=== PATIENT | male | born 1945 | race Caucasian/White ===

== ENCOUNTER 2019-11-11 10:58 | Outpatient (CLI) | payer MEDICARE, OTHER ==
--- NOTE | 2019-11-11 12:16 | RAD ---
CHEST TWO VIEWS: 11/11/2019 PROVIDED CLINICAL HISTORY: Preop. FINDINGS: The cardiac silhouette is at the upper limits of normal in size. No focal consolidation, pleural flui d or pneumothorax apparent. Degenerative changes are seen involving the spine. IMPRESSION: Borderline heart size without evidence for an acute cardiopulmonary process. POS: OFF
[2019-11-11 13:06] LABS: #Eosinphils 0.3 thou/uL (0.0-0.7); #Lymphocytes 1.9 thou/uL (1.20-3.40); #Monocytes 0.7 thou/uL (0.11-0.59); #Neutrophils 4.5 thou/uL (1.40-6.50); %Basophils 0.5 % (0.0-1.0); %Eosinophils 3.9 % (0.0-10.0); %Lymphocytes 25.3 % (21.0-51.0); %Monocytes 9.1 % (0.0-10.0); %Neutrophils 61.2 % (42.0-75.0); Hemoglobin 15.4 g/dL (14.0-18.0); Mean Corpuscular Hemoglobin 32.8 pg (27.0-31.0); Mean Corpuscular Volume 93.6 fL (78.0-98.0); Mean Platelet Volume 9.3 fL (7.4-10.4); Platelet Count 197 thou/uL (130-400); RBC Distribution Width 12.1 % (11.5-14.5); Red Blood Cell (RBC) Count 4.71 mill/uL (4.70-6.10); White Blood Cell (WBC) Count 7.3 thou/uL (4.8-10.8)
[2019-11-11 13:33] LABS: ALT (SGPT) 39 U/L (8-55); AST (SGOT) 30 U/L (5-34); Albumin 4.4 g/dL (3.4-4.8); Alkaline Phosphatase 68 U/L (40-110); Anion Gap 14 mmol/L (10-20); BUN (Urea Nitrogen) 11 mg/dL (8.4-25.7); Bilirubin, Total 0.5 mg/dL (0.2-1.2); Calc. Creatinine Clearance 0 mL/min (70-130); Calcium 9.6 mg/dL (7.8-10.44); Carbon Dioxide 26 mmol/L (23-31); Chloride 102 mmol/L (98-107); Estimated GFR-MDRD Greater than 90; Globulin 2.7 g/dL (2.4-3.5); Glucose 193 mg/dL (83-110); Potassium 4.6 mmol/L (3.5-5.1); Protein, Total 7.1 g/dL (5.8-8.1); Sodium 137 mmol/L (136-145)
== END 2019-11-11 10:59 | disposition home or self-care (01) ==
LOC: LABBT 10:58
PROVIDERS: ATTEND Internal Medicine Cardiovascular Disease
DX: Z01.818 Encounter for other preprocedural examination (principal); R93.5 Abnormal findings on diagnostic imaging of other abdominal regions, including retroperitoneum
CPT/HCPCS: 71046; 80053; 85025

== ENCOUNTER 2019-11-22 05:53 | Inpatient (IN) | payer MEDICARE, OTHER ==
[2019-11-22] MEDS ORDERED: Heparin (Artline) 1,000 ML ONE (06:33)
[2019-11-22] MEDS ORDERED: Heparin 10,000 UNITS/1 ML VIAL ONE (06:33)
[2019-11-22] MEDS ORDERED: Midazolam HCl 2 mg/2 ml Vial ONE (07:02)
[2019-11-22] MEDS ORDERED: Bivalirudin 250 MG VIAL ONE (07:39)
[2019-11-22] MEDS ORDERED: Heparin (Artline) 500 ML ONE ×2 (07:40→07:48)
[2019-11-22] MEDS ORDERED: Protamine Sulfate 50 MG/5 ML VIAL ONE (08:02)
[2019-11-22] MEDS ORDERED: Nitroglycerin 0.4 MG TAB (25 Tab Bottle) SL PRN (08:20)
[2019-11-22] MEDS ORDERED: Sodium Chloride 0.9% 200 ML IV PRN (08:20)
[2019-11-22] MEDS ORDERED: Sodium Chloride 0.9% 1,000 ML IV SCH (08:30)
[2019-11-22] MEDS ORDERED: Acetaminophen 500 MG TAB ONE (08:52)
[2019-11-22] MEDS ORDERED: Acetaminophen 500 MG TAB PO SCH (09:00)
[2019-11-22] MEDS ORDERED: Iopamidol 370 76% 50 ML VIAL FS ONE (09:21)
[2019-11-22] MEDS ORDERED: Iopamidol 370 76% 100 ML VIAL ONE (09:21)
--- NOTE | 2019-11-22 12:12 | CON ---
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 He was also noted to have a complete right coronary occlusion at that time and this could not be opened. He has been followed along and due to recent abnormal PET study associated with some dyspnea, but no chest discomfort. Catheterization was repeated showing about a 70% LAD stenosis and then 60% stenosis of the circumflex stent just in the region of a bifurcating OM system. Right coronary artery was occluded distally and filled from left-sided collaterals, although it did not show any vessels that were large enough to consider for grafting. PAST MEDICAL HISTORY: Includes diabetes mellitus followed by Dr. Lori Brown with an A1c of about 8. He also has obesity and uses CPAP machine. He has hypertension, controlled. Diabetes mellitus as noted. He has a history of elevated liver function tests. SOCIAL HISTORY: He has not smoked since 1973. He is . 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 PAST SURGICAL HISTORY: Includes laparoscopic cholecystectomy as well as two back surgeries done in 2016 and 2017 in the [place] area. ALLERGIES: OPIATES AND TYLENOL 3, WHICH MAKES HIM GOOFY. MEDICATIONS: Include; 1. Ramipril 10 mg daily. 2. Aspirin 325 a day. 3. Fish oil 1000 mg twice a day. 4. Metformin 1000 mg b.i.d. 5. Glipizide 10 mg b.i.d. 6. Prilosec 20 mg daily. 7. Metoprolol ER 200 mg daily. 8. Simvastatin 40 mg daily. 9. Vitamins supplements. 10. He is also on diltiazem ER 240 a day. PHYSICAL EXAMINATION: GENERAL: Alert, cooperative gentleman, appearing younger than his stated age with a weight of 251 pounds and height of 5 feet 11 inches. NECK: No carotid bruits. LUNGS: Clear to auscultation. CARDIAC: Regular rate and rhythm. No murmurs. ABDOMEN: Obese, soft, and nontender. EXTREMITIES: He has palpable dorsalis pedis pulses. He has a sandbag on the right groin with hematoma and this seems to extend along his medial thigh toward his knee. He is somewhat tender to palpation in this area. Consider grafting to the LAD, possibly one or both of the obtuse marginals and the distal PDA system if a vessel is large enough to graft there. Due to his rather sizable hematoma in the groin at this time, I suggested that we wait for surgery for another week or so to ensure this is not going to be a problem in the groin. He has had no symptoms to suggest angina. He has a chronically occluded right and well collateralized. Job ID: [id number]
[2019-11-22] MEDS: glipiZIDE 10 MG TAB PO SCH (17:27)
[2019-11-22 17:38] VITALS: BMI 35.3
[2019-11-22] MEDS ORDERED: Atorvastatin Calcium 20 MG TAB PO SCH (21:00)
[2019-11-22] MEDS ORDERED: Acetaminophen 325 MG TAB PO PRN (22:55)
[2019-11-23 05:38] LABS: #Basophils 0.1 thou/uL (0.0-0.2); #Eosinphils 0.1 thou/uL (0.0-0.7); #Monocytes 1.3 thou/uL (0.11-0.59); #Neutrophils 8.6 thou/uL (1.40-6.50); %Basophils 0.7 % (0.0-1.0); %Eosinophils 0.8 % (0.0-10.0); %Lymphocytes 16.8 % (21.0-51.0); %Monocytes 10.5 % (0.0-10.0); %Neutrophils 71.2 % (42.0-75.0); Hemoglobin 13.4 g/dL (14.0-18.0); Mean Corpuscular HGB CONC 31.5 g/dL (32.0-36.0); Mean Corpuscular Hemoglobin 29.9 pg (27.0-31.0); Mean Platelet Volume 9.6 fL (7.4-10.4); Platelet Count 208 thou/uL (130-400); RBC Distribution Width 12.2 % (11.5-14.5); Red Blood Cell (RBC) Count 4.48 mill/uL (4.70-6.10); White Blood Cell (WBC) Count 12.1 thou/uL (4.8-10.8)
[2019-11-23 05:46] LABS: Anion Gap 14 mmol/L (10-20); BUN (Urea Nitrogen) 18 mg/dL (8.4-25.7); Calc. Creatinine Clearance 129 mL/min (70-130); Calcium 8.9 mg/dL (7.8-10.44); Carbon Dioxide 22 mmol/L (23-31); Chloride 103 mmol/L (98-107); Estimated GFR-MDRD Greater than 90; Glucose 197 mg/dL (83-110); Potassium 3.7 mmol/L (3.5-5.1); Sodium 135 mmol/L (136-145)
[2019-11-23] MEDS: glipiZIDE 10 MG TAB PO SCH (07:33)
[2019-11-23] MEDS ORDERED: Ramipril 5 MG CAP PO SCH (09:00)
[2019-11-23] MEDS ORDERED: Aspirin 325 MG TAB PO SCH (09:00)
[2019-11-23] MEDS ORDERED: EPA PO SCH (09:00)
[2019-11-23] MEDS ORDERED: Multivit, Therapeutic 1 TAB PO SCH (09:00)
[2019-11-23] MEDS ORDERED: FISH OIL PO SCH (09:00)
[2019-11-23] MEDS ORDERED: Stress 600 With Zinc 1 TAB PO SCH (09:00)
[2019-11-23] MEDS ORDERED: OMEGA PO SCH (09:00)
[2019-11-23] MEDS ORDERED: DHA PO SCH (09:00)
[2019-11-23] MEDS ORDERED: Vitamin E 400 UNITS CAP PO SCH (09:00)
--- NOTE | 2019-11-23 10:03 | ULT ---
RIGHT GROIN ULTRASOUND TO EVALUATE FOR PSEUDO-ANEURYSM: HISTORY: Right femoral hematoma. Status post cardiac cath a day ago. FINDINGS: There is an 8.2 x 3 x 6.8 cm complex mass in the right groin without blood flow or communication to t he blood vessels. This is consistent with a hematoma. IMPRESSION: No evidence of pseudo-aneurysm in the right groin. POS: [facility]
[2019-11-23 11:22] VITALS: BP 121/62; TEMP 97.5
--- NOTE | 2019-11-23 15:11 | DIS ---
DATE OF ADMISSION: 11/22/2019 DATE OF DISCHARGE: 11/23/2019 DISCHARGE DIAGNOSES: 1. Three-vessel coronary artery disease for coronary artery bypass grafting in the near future. 2. Right femoral artery hematoma post catheterization. 3. Placement of stent in the proximal circumflex in 1999 in [place]. 4. Hypercholesterolemia, under good control. 5. Diabetes. 6. Hypertension. 7. Former smoker. 8. Obstructive sleep apnea. 9. Obesity. DISCHARGE DISPOSITION: Dr. Valadez will contact the patient for bypass surgery in the near future. DISCHARGE MEDICATIONS: 1. Ramipril 10 mg daily. 2. Simvastatin 40 mg at bedtime. 3. Nitroglycerin 0.4 mg p.r.n. 4. Metformin 500 mg two tablets b.i.d. 5. Omeprazole 20 mg daily. 6. Glipizide 10 mg b.i.d. 7. Aspirin 325 daily. 8. Metoprolol ER 200 mg daily. 9. Diltiazem 240 mg ER q.a.m. HOSPITAL COURSE: Mr. Goins underwent cardiac catheterization for abnormal Cardiolite. This was performed due to new onset of exertional dyspnea. At catheterization, he had mild anterior hypokinesis with ejection fraction of 50% to 55%. There was an 80% proximal LAD, proximal circumflex stent, and a 60% to 70% proximal circumflex lesion just distal to the stent. The right coronary artery was totally occluded as it was 20 years previously with the distal vessel filling retrograde from the left. The concern over possible intervention of the proximal LAD was that this was very close to the left main, and overall it was felt that with 3-vessel disease in a diabetic, bypass surgery would be his best option. He did have a right femoral artery hematoma after the procedure and the decision was made to delay CABG for 5 or 6 days. An ultrasound was performed on the day after catheterization, which showed no evidence of right femoral artery pseudoaneurysm. The patient was instructed not to do any significant lifting for the next 4 or 5 days. He will undergo bypass surgery in the near future. Job ID: [id number]
--- NOTE | 2019-11-25 21:23 | CON ---
DATE OF CONSULTATION: HISTORY OF PRESENT ILLNESS: Quinton Goins is a 74-year-old white male who was [facility] July 2009. In 1999 while living in [place], he began to have chest discomfort and was hospitalized and he stated that he did have myocardial infarction. He underwent cardiac catheterization, was found to have totally occluded right coronary artery and 99% circumflex lesion. Velocity 4.0 x 18 mm stent was placed in the circumflex. He underwent Cardiolite treadmill test in January 2010 and had no evidence of ischemia. He also had a negative Cardiolite in August 2016. He has noted over the last several months that he will become dyspneic, especially if he was walking fast. He underwent cardiac PET scan which revealed moderate inferoapical ischemia. This finding certainly could be consistent with his totally occluded right coronary artery; however, he has had 2 previous Cardiolite scans that did not demonstrate any ischemia. It was recommended he undergo cardiac catheterization, which was performed on 11/22. He was found to have mild anterior hypokinesis with ejection fraction of 50% to 55%. There was an 80% proximal LAD near the left main. There was a 60% to 70% lesion in the proximal circumflex just distal to the stent which continued to be patent. The right coronary artery was totally occluded in its midportion and filled retrograde from the left. He was seen by Dr. Valadez in consultation for possible CABG. Mr. Goins did develop quite a large hematoma and was observed overnight. Ultrasound the following day revealed no evidence of pseudoaneurysm. Dr. Valadez felt it would be best to wait until this had a chance to improve. Mr. Goins states he has not been sleeping well over the past several nights. Then, last night at 11:00 pm, he was watching the end of a football game and started to develop chest pressure. He also had shortness of breath with this. He denies any palpitation, diaphoresis, nausea, or vomiting. Just the chest pressure. He states this is somewhat similar to what he had with his myocardial infarction many years ago. He went to the emergency room in [facility] and was found to be in atrial fibrillation with very rapid ventricular response with heart rate of 214 per minute. He was given Lovenox, started on Cardizem and amiodarone drip and transferred. At the present time, he denies any chest discomfort, although he remains in atrial fibrillation with heart rate in the 130s. PAST MEDICAL HISTORY: Diabetes, increased liver function test in the past, obesity; obstructive sleep apnea, on CPAP; hypertension, hypercholesterolemia. MEDICATIONS: 1. Aspirin 325 daily. 2. Ramipril 10 mg daily. 3. Simvastatin 40 mg at bedtime. 4. Nitroglycerin p.r.n. 5. Metformin 500 mg 2 tablets b.i.d. 6. Omeprazole 20 mg daily. 7. Glipizide 10 mg b.i.d. 8. Metoprolol ER 200 mg daily. 9. Diltiazem 240 ER q.a.m. ALLERGIES: CODEINE. PAST SURGICAL HISTORY: Laparoscopic cholecystectomy, back surgery, neck surgery. SOCIAL HISTORY: Smoked in the past. He occasionally drinks alcohol. REVIEW OF SYSTEMS: A 12-point review of systems is otherwise unremarkable. PHYSICAL EXAMINATION: VITAL SIGNS: Blood pressure 130/67, pulse of 126. HEENT: PERRL. NECK: Supple. CHEST: Clear. CARDIAC: S1 and S2 normal without any S3, S4, or murmurs. Carotid upstrokes normal without bruits. EXTREMITIES: Dorsalis pedis and posterior tibial pulses are intact. He does have a large ecchymotic area extending almost to his knee on the right medial thigh. ABDOMEN: Normal bowel sounds without tenderness or organomegaly. EXTREMITIES: Reveal no clubbing, cyanosis, or edema. NEUROLOGICAL: Grossly intact. SKIN: Warm and dry. IMPRESSION: 1. New onset atrial fibrillation. He denies ever having this in the past. 2. Three-vessel coronary artery disease, for CABG in the near future. 3. Right femoral artery hematoma post catheterization, no evidence of pseudoaneurysm. Catheterization was 3 days ago. 4. History of stent placed in the proximal circumflex in 1999 while living in [place]. 5. Hypercholesterolemia, under good control. 6. Diabetes. 7. Hypertension. 8. Former smoker. 9. Obstructive sleep apnea. 10. Obesity. PLAN: The patient will be maintained on intravenous Cardizem and intravenous amiodarone. He has received digoxin 0.5 mg IV and continues to be quite tachycardic, I will give another 0.25 mg now. He will continue on the high-dose metoprolol. I feel he is far enough out from his cardiac catheterization that he could be anticoagulated and will be started on Lovenox. Aspirin will be reduced to 81 qd. Consideration will be given to cardioversion in the morning. Job ID: [id number] MTDD
== END 2019-11-23 14:31 | disposition home or self-care (01) | DRG 287 ==
LOC: CCL 05:53 → 2NO 08:20
PROVIDERS: ADMIT Internal Medicine Cardiovascular Disease; ATTEND Internal Medicine Cardiovascular Disease
PROC: 4A023N7 Measurement of Cardiac Sampling and Pressure, Left Heart, Percutaneous Approach (ICD-10-PCS; principal; 2019-11-22)
PROC: B2111ZZ Fluoroscopy of Multiple Coronary Arteries using Low Osmolar Contrast (ICD-10-PCS; 2019-11-22)
PROC: B2151ZZ Fluoroscopy of Left Heart using Low Osmolar Contrast (ICD-10-PCS; 2019-11-22)
DX: I25.10 Atherosclerotic heart disease of native coronary artery without angina pectoris (principal); I97.630 Postprocedural hematoma of a circulatory system organ or structure following a cardiac catheterization; Z95.5 Presence of coronary angioplasty implant and graft; E78.00 Pure hypercholesterolemia, unspecified; I10 Essential (primary) hypertension; E11.9 Type 2 diabetes mellitus without complications; G47.33 Obstructive sleep apnea (adult) (pediatric); Z87.891 Personal history of nicotine dependence; Y84.0 Cardiac catheterization as the cause of abnormal reaction of the patient, or of later complication, without mention of misadventure at the time of the procedure; E66.9 Obesity, unspecified; Z68.35 Body mass index [BMI] 35.0-35.9, adult
CPT/HCPCS: 36415; 76936; 80048; 85025; 85347; 93458; 99152; 99153; C1769; C1887; J0583; J1644; J2250; J2720; Q9967

== ENCOUNTER 2019-11-25 02:23 | Inpatient (IN) | payer MEDICARE, OTHER ==
[2019-11-25] MEDS ORDERED: Diltiazem 125 MG/25 ML ONE (02:41)
[2019-11-25] MEDS ORDERED: Amiodarone 150 MG/3 ML VIAL ONE (03:48)
[2019-11-25] MEDS ORDERED: Amiodarone 450 MG, Admixture Fee 1 EACH in Dextrose 5% in Water 250 ML IVPB SCH (04:00)
[2019-11-25 05:56] LABS: Troponin I 0.196 ng/mL (< 0.028)
[2019-11-25 06:14] LABS: CKMB 2.9 ng/mL (0-6.6)
[2019-11-25 06:39] LABS: Troponin I 0.244 ng/mL (< 0.028)
[2019-11-25] MEDS ORDERED: [UNRECOGNIZED DRUG - REMARK] FS SCH (07:04)
[2019-11-25 07:51] LABS: Anion Gap 14 mmol/L (10-20); BUN (Urea Nitrogen) 16 mg/dL (8.4-25.7); Calc. Creatinine Clearance 0 mL/min (70-130); Calcium 8.8 mg/dL (7.8-10.44); Carbon Dioxide 20 mmol/L (23-31); Chloride 103 mmol/L (98-107); Estimated GFR-MDRD Greater than 90; Glucose 260 mg/dL (83-110); Sodium 133 mmol/L (136-145)
[2019-11-25 07:59] LABS: Troponin I 0.262 ng/mL (< 0.028)
[2019-11-25 08:43] LABS: #Eosinphils 0.1 thou/uL (0.0-0.7); #Lymphocytes 1.6 thou/uL (1.20-3.40); #Monocytes 0.9 thou/uL (0.11-0.59); #Neutrophils 6.2 thou/uL (1.40-6.50); %Basophils 0.6 % (0.0-1.0); %Eosinophils 1.1 % (0.0-10.0); %Lymphocytes 17.8 % (21.0-51.0); %Monocytes 10.3 % (0.0-10.0); %Neutrophils 70.3 % (42.0-75.0); Hemoglobin 11.5 g/dL (14.0-18.0); Mean Corpuscular HGB CONC 35.5 g/dL (32.0-36.0); Mean Corpuscular Hemoglobin 33.2 pg (27.0-31.0); Mean Corpuscular Volume 93.4 fL (78.0-98.0); Mean Platelet Volume 9.6 fL (7.4-10.4); Platelet Count 175 thou/uL (130-400); RBC Distribution Width 11.8 % (11.5-14.5); Red Blood Cell (RBC) Count 3.48 mill/uL (4.70-6.10); White Blood Cell (WBC) Count 8.8 thou/uL (4.8-10.8)
[2019-11-25] MEDS ORDERED: Dextrose 5% in Water 1,000 ML IV PRN (08:57)
[2019-11-25] MEDS ORDERED: Dextrose 50% Abboject 50 ML SYRINGE SLOW IVP PRN (08:57)
[2019-11-25] MEDS ORDERED: HumaLOG 300 UNITS/3 ML VIAL SC PRN (08:57)
[2019-11-25] MEDS ORDERED: Non-Formulary Item 1 EACH (Metoprolol Succinate [Metoprolol Succinate] 200 MG) PO SCH (09:00)
[2019-11-25] MEDS ORDERED: metFORMIN XR 500 MG TAB PO SCH (09:00)
[2019-11-25] MEDS ORDERED: Pantoprazole 40 MG VIAL IVP SCH (09:00)
--- NOTE | 2019-11-25 09:55 | HP ---
PRIMARY CARE PROVIDER: Umair Stevenson MD CHIEF COMPLAINT: Chest pain. HISTORY OF PRESENT ILLNESS: Mr. Goins is a pleasant 74-year-old gentleman, who was seen at [facility] on November 25, 2019. He was hospitalized here from November 22 to 2018 for cardiac catheterization and right femoral artery hematoma postcatheterization. He was seen by Cardiology and Cardiovascular Surgery Services during that hospitalization. Plan was to have coronary artery bypass graft surgery in the near future. Around 11 p.m. last night, he was sitting in chair watching television when he developed retrosternal chest discomfort. It was pressure-like, on and off, accompanied by pain in his left shoulder and left arm. It was 5/10 at its worst and accompanied by shortness of breath. He denies any palpitations, diaphoresis, nausea, or lightheadedness. He cannot recall any aggravating or relieving factors. In the emergency room, he was also found to be in atrial fibrillation with rapid ventricular response. He has been referred to Hospitalist Service for admission. REVIEW OF SYSTEMS: All systems were reviewed and found to be negative except for the pertinent positives mentioned above. PAST MEDICAL HISTORY: Diabetes mellitus type 2, obesity, obstructive sleep apnea syndrome, hypertension, elevated liver function tests, and coronary artery disease. PAST SURGICAL HISTORY: Laparoscopic cholecystectomy and back surgery x2. SOCIAL HISTORY: The patient does not smoke currently. He reports occasional alcohol use. No recreational drug use. ALLERGIES: OPIATES AND TYLENOL NO.3. HOME MEDICATIONS: As dictated by Dr. Reid in his discharge summary, dated November 23, 2019. FAMILY HISTORY: Coronary artery disease in both parents. PHYSICAL EXAMINATION: GENERAL: Mr. Goins is awake and alert, not in acute distress. VITAL SIGNS: Blood pressure is 121/75, pulse 147, respiratory rate 16, and oxygen saturation 96% on room air. He is afebrile. EYES: No scleral icterus. No conjunctival pallor. ENT: Moist mucosal membranes. No oropharyngeal erythema or exudates. NECK: Supple, nontender. Trachea is midline. RESPIRATORY: Accessory muscles of breathing are not active. Chest wall movements are symmetric bilaterally. Lungs are clear to auscultation without wheeze, rhonchi, or crepitations. CARDIOVASCULAR: S1 and S2 are heard, tachycardic and irregular. Peripheral pulses palpable. ABDOMEN: Soft, distended, and nontender. Bowel sounds are heard. NEUROLOGIC: Cranial nerves 2 through 12 are intact. MUSCULOSKELETAL: Power is 5/5 in all 4 extremities. SKIN: The patient has bruise over the right groin. LYMPHATIC: No cervical lymphadenopathy. PSYCHIATRIC: Normal mood. Normal affect. The patient is oriented to person, place, and time. LABORATORY AND DIAGNOSTIC DATA: Mr. Goins's labs and investigations were reviewed. A 12-lead electrocardiogram shows atrial fibrillation with rapid ventricular response, no ST changes to suggest an acute coronary syndrome. He has normal white count, normocytic anemia with hemoglobin 11.5, normal platelet count. Mildly decreased sodium of 133, normal potassium, normal creatinine, and indeterminate troponin-I of 0.262. ASSESSMENT AND PLAN: Mr. Goins is a pleasant 74-year-old gentleman, who was seen at [facility] on November 25, 2019. His problem list includes: 1. Chest pain: Mr. Goins is presenting with chest pain, most likely secondary to cardiac etiology. Cardiology and Cardiovascular Surgery Services will be consulted for opinion and help with management. 2. Atrial fibrillation with rapid ventricular response: This is a new diagnosis. The patient reportedly received a dose of Lovenox prior to transfer here from [facility]. He has received amiodarone and Cardizem. He continues to be tachycardic. We will resume beta segundo, especially since he may be going for surgery. Further management per Cardiology Service. 3. Diabetes mellitus type 2: We will hold metformin, start Accu-Cheks and insulin sliding scale. The patient is currently on n.p.o. status except for medications with sips of water, we will hold sulfonylureas. 4. Hypertension: We will monitor vital signs and titrate antihypertensives as needed. 5. Obstructive sleep apnea syndrome: The patient to use CPAP while asleep. 6. Dyslipidemia: We will continue simvastatin. 7. Level of risk: Moderate. 8. Level of complexity: Moderate. Many thanks for allowing me to participate in your patient's care. Please feel free to contact me if any questions or concerns. Job ID: [id number]
[2019-11-25 12:47] LABS: Troponin I 0.342 ng/mL (< 0.028)
[2019-11-25] MEDS ORDERED: Digoxin 0.5 MG/2 ML AMP SLOW IVP SCH ×2 (15:45→18:00)
[2019-11-25] MEDS ORDERED: metFORMIN 500 MG TAB PO SCH (17:30)
[2019-11-25] MEDS ORDERED: glipiZIDE 10 MG TAB PO SCH (17:30)
[2019-11-25 17:35] VITALS: BMI 34.2
[2019-11-25 19:16] LABS: Troponin I 0.188 ng/mL (< 0.028)
[2019-11-25] MEDS: Diltiazem 125 MG in Sodium Chloride 0.9% 100 ML IVPB SCH (19:30)
[2019-11-25] MEDS: Enoxaparin Sodium 120 MG/0.8 ML SYRINGE SC SCH (20:31)
[2019-11-25] MEDS ORDERED: CEFAZOLIN 2 GM in Premix Bag 1 BAG IVPB SCH (20:45)
[2019-11-26] MEDS: Diltiazem 125 MG in Sodium Chloride 0.9% 100 ML IVPB SCH (03:05)
[2019-11-26 04:22] LABS: #Eosinphils 0.3 thou/uL (0.0-0.7); #Lymphocytes 1.6 thou/uL (1.20-3.40); #Monocytes 0.8 thou/uL (0.11-0.59); %Basophils 0.5 % (0.0-1.0); %Eosinophils 4.2 % (0.0-10.0); %Lymphocytes 20.8 % (21.0-51.0); %Monocytes 10.4 % (0.0-10.0); %Neutrophils 64.1 % (42.0-75.0); Hemoglobin 11.4 g/dL (14.0-18.0); Mean Corpuscular HGB CONC 34.2 g/dL (32.0-36.0); Mean Corpuscular Hemoglobin 31.6 pg (27.0-31.0); Mean Corpuscular Volume 92.2 fL (78.0-98.0); Mean Platelet Volume 9.9 fL (7.4-10.4); Platelet Count 189 thou/uL (130-400); RBC Distribution Width 12.1 % (11.5-14.5); Red Blood Cell (RBC) Count 3.61 mill/uL (4.70-6.10); White Blood Cell (WBC) Count 7.8 thou/uL (4.8-10.8)
[2019-11-26 04:53] LABS: Anion Gap 13 mmol/L (10-20); BUN (Urea Nitrogen) 12 mg/dL (8.4-25.7); Calc. Creatinine Clearance 135 mL/min (70-130); Calcium 8.8 mg/dL (7.8-10.44); Carbon Dioxide 23 mmol/L (23-31); Chloride 105 mmol/L (98-107); Estimated GFR-MDRD Greater than 90; Glucose 210 mg/dL (83-110); Magnesium 1.5 mg/dL (1.6-2.6); Potassium 3.5 mmol/L (3.5-5.1); Sodium 137 mmol/L (136-145)
--- NOTE | 2019-11-26 09:14 | PDOC.HOSPP ---
- Subjective Encounter Date: 11/26/19 Encounter Time: 09:12 Subjective: Mr. Reyes was seen today in follow-up of chest pain and AFIB. He has converted back to sinus. He denies any chest pain this morning. - Objective Vital Signs & Weight: Vital Signs (12 hours) Temp 11/26/19 07:09 97.4 F L 11/26/19 03:37 98.3 F 11/25/19 23:31 98.1 F Weight Weight 255 lb 1 oz Most Recent Monitor Data Heart Rate from ECG 79 NIBP 165/82 NIBP BP-Mean 109 Respiration from ECG 24 SpO2 99 I&O: 11/25/19 11/26/19 11/27/19 06:59 06:59 06:59 Intake Total 1139 Output Total 550 475 Balance 589 -475 Result Diagrams: 11/26/19 03:38 11/26/19 03:38 Additional Labs: Accuchecks 11/26/19 11/25/19 11/25/19 06:03 19:55 16:03 POC Glucose 207 H 242 H 265 H Hospitalist ROS - Medication Medications: Active Medications Generic Name Dose Route Start Last Admin Trade Name Freq PRN Reason Stop Dose Admin Enoxaparin Sodium 110 mg 11/25/19 21:00 11/25/19 20:31 Lovenox SC 110 mg 0900,2100 PARVEZ Administration Amiodarone HCl 450 mg/ 259 mls @ 0 mls/hr 11/25/19 04:00 11/25/19 23:26 Miscellaneous Medication 1 IVPB 259 mls each/ Dextrose/Water INF PARVEZ Administration Protocol As Directed Diltiazem HCl 125 mg/ Sodium 125 mls @ 15 mls/hr 11/25/19 05:45 11/26/19 03: 05 Chloride IVPB 125 mls INF PARVEZ Administration Protocol 15 MG/HR - Exam Eye: PERRL Heart: RRR, no murmur, no gallops, no rubs, normal peripheral pulses Respiratory: CTAB, no wheezes, no rales, no ronchi, normal chest expansion, no tachypnea, normal percussion Gastrointestinal: soft, non-tender, non-distended, normal bowel sounds, no palpable masses, no hepatomegaly Extremities: no cyanosis (+ large hematoma/bruise on the right groin, softer, good femoral and D.P. pulses), no edema Hosp A/P (1) Chest pain Code(s): R07.9 - CHEST PAIN, UNSPECIFIED Status: Acute (2) CAD (coronary artery disease) Code(s): I25.10 - ATHSCL HEART DISEASE OF [place] CORONARY ARTERY W/O ANG PCTRS Status: Acute (3) Hypertension Code(s): I10 - ESSENTIAL (PRIMARY) HYPERTENSION Status: Acute (4) Diabetes mellitus type 2 in nonobese Code(s): E11.9 - TYPE 2 DIABETES MELLITUS WITHOUT COMPLICATIONS Status: Acute - Plan * Chest pain- will defer work-up to Cardiology * Atrial fibrillation- he has converted to sinus * Femoral Hematoma- improving, and his H&H has remained stable * DM- blood glucose is a bit elevated- will continue his home medications, and SSI * Hypomagnesemia- replace Magnesium
[2019-11-26] MEDS: Enoxaparin Sodium 120 MG/0.8 ML SYRINGE SC SCH (09:32)
[2019-11-26] MEDS: Fish Oil 1,000 MG CAP PO SCH (09:34)
[2019-11-26] MEDS: Multivit, Therapeutic 1 TAB PO SCH (09:35)
[2019-11-26] MEDS: glipiZIDE 10 MG TAB PO SCH ×2 (09:35→16:07)
[2019-11-26] MEDS: Ramipril 5 MG CAP PO SCH (09:35)
[2019-11-26] MEDS: metFORMIN 500 MG TAB PO SCH ×2 (09:35→16:07)
[2019-11-26 09:36] VITALS: BP 165/82
[2019-11-26] MEDS ORDERED: Diltiazem 125 MG in Sodium Chloride 0.9% 100 ML IVPB SCH (10:28)
[2019-11-26] MEDS: Vitamin E 400 UNITS CAP PO SCH (11:08)
[2019-11-26] MEDS: Stress 600 With Zinc 1 TAB PO SCH (11:08)
[2019-11-26] MEDS: Amiodarone 200 MG TAB PO SCH ×2 (14:42→21:43)
[2019-11-26] MEDS: Apixaban 5 MG TAB PO SCH (21:43)
[2019-11-27 04:04] VITALS: TEMP 97.2
[2019-11-27 04:06] LABS: #Eosinphils 0.4 thou/uL (0.0-0.7); #Lymphocytes 1.6 thou/uL (1.20-3.40); #Monocytes 0.7 thou/uL (0.11-0.59); %Basophils 0.7 % (0.0-1.0); %Eosinophils 5.6 % (0.0-10.0); %Lymphocytes 23.3 % (21.0-51.0); %Monocytes 11.1 % (0.0-10.0); %Neutrophils 59.3 % (42.0-75.0); Hemoglobin 11.9 g/dL (14.0-18.0); Mean Corpuscular HGB CONC 34.2 g/dL (32.0-36.0); Mean Corpuscular Hemoglobin 31.7 pg (27.0-31.0); Mean Corpuscular Volume 92.7 fL (78.0-98.0); Mean Platelet Volume 9.3 fL (7.4-10.4); Platelet Count 221 thou/uL (130-400); RBC Distribution Width 12.5 % (11.5-14.5); Red Blood Cell (RBC) Count 3.77 mill/uL (4.70-6.10); White Blood Cell (WBC) Count 6.7 thou/uL (4.8-10.8)
[2019-11-27 04:35] LABS: Anion Gap 13 mmol/L (10-20); BUN (Urea Nitrogen) 9 mg/dL (8.4-25.7); Calc. Creatinine Clearance 144 mL/min (70-130); Calcium 9.1 mg/dL (7.8-10.44); Carbon Dioxide 24 mmol/L (23-31); Chloride 105 mmol/L (98-107); Estimated GFR-MDRD Greater than 90; Glucose 173 mg/dL (83-110); Magnesium 1.7 mg/dL (1.6-2.6); Potassium 3.7 mmol/L (3.5-5.1); Sodium 138 mmol/L (136-145)
[2019-11-27] MEDS: metFORMIN 500 MG TAB PO SCH (07:29)
[2019-11-27] MEDS: Acetaminophen 325 MG TAB PO PRN ×2 (07:30→14:52)
[2019-11-27] MEDS: glipiZIDE 10 MG TAB PO SCH (07:30)
[2019-11-27] MEDS: Fish Oil 1,000 MG CAP PO SCH (09:48)
[2019-11-27] MEDS: Ramipril 5 MG CAP PO SCH (09:49)
[2019-11-27] MEDS: Amiodarone 200 MG TAB PO SCH ×2 (09:49→14:52)
[2019-11-27] MEDS: Apixaban 5 MG TAB PO SCH (09:49)
[2019-11-27] MEDS: Stress 600 With Zinc 1 TAB PO SCH (09:50)
[2019-11-27] MEDS: Multivit, Therapeutic 1 TAB PO SCH (09:50)
[2019-11-27] MEDS: Vitamin E 400 UNITS CAP PO SCH (09:50)
[2019-11-27] MEDS ORDERED: Aspirin 81 mg Enteric Coated Tablet PO SCH (14:00)
[2019-11-27] MEDS ORDERED: Atorvastatin Calcium 40 MG TAB PO SCH (21:00)
--- NOTE | 2019-11-28 03:29 | DIS ---
DATE OF ADMISSION: 11/25/2019 DATE OF DISCHARGE: 11/27/2019 PRESENTING HISTORY OF PRESENT ILLNESS: The patient had chest pain, presented to the emergency department and found to be in atrial fibrillation with RVR, was placed on an amiodarone drip and transitioned to the ICU, subsequently converted back into sinus rhythm. Cardiology was consulted, and the patient was titrated down to oral amiodarone and felt stable to be discharged and follow up in clinic. No pertinent additional studies such as echocardiogram, etc. were performed. The patient's outpatient auto service advisor is Dr. Reid. The patient has significant bruising to right groin from recent catheterization. The patient scheduled for outpatient CABG, has not occurred yet. Bruising is from cardiac catheterization with Dr. Reid. Cardiology did recommend changing patient's outpatient medications on discharge to accommodate for Eliquis. Full-dose aspirin was decreased to 81 mg, atorvastatin 40 mg for increased potency. Regarding patient's diabetes, continued on metformin 500 mg two tabs p.o. b.i.d. P.r.n. nitroglycerin for chest pain tablets. Continue omeprazole 20 mg for heartburn, ramipril 10 mg daily, and amiodarone 400 mg t.i.d. Loading phase will likely need to be titrated down as the patient will become bradycardic or hypotensive in the medium term. Continuing patient's metoprolol 200 mg daily, glipizide 10 mg p.o. b.i.d., and diltiazem 240 mg daily. FOLLOWUP: With Dr. Reid on outpatient basis, Dr. Valadez as planned, and the patient's PCP, Dr. Stevenson in the next 7 days. ACTIVITY: As tolerated. DIET: ADA and [place] Heart [employer] diets. DISCHARGE CONDITION: Fair. Time spent on Discharge greater than 30 min with over 50% face to face time on floor Job ID: [id number] MTDD
[2019-11-28] MEDS ORDERED: Aspirin 81 mg Enteric Coated Tablet PO SCH (09:00)
--- NOTE | 2019-11-29 05:18 | PQF ---
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 Clinical indicators are provided on the bottom of this form for your review Please check appropriate box(s): [ ] Atrial Fibrillation is a complication of current/recent surgery [ ] Atrial Fibrillation is not a complication of current/recent surgery [ ] Other diagnosis [ x] Unable to determine In addition, please specify: Present on Admission (POA): [ x] Yes [ ] No [ ] Unable to determine CLINICAL INDICATORS - SIGNS / SYMPTOMS / LABS In ED he was also found to be in Afib with rapid ventricular response - Documented in H&P / by Nasir Pino MD He was hospitalized here from to 23 November 2019 for cardiac catheterization - Documented in H&P / by Nasir Pino MD RT femoral artery hematoma post catheterization - Documented in H&P /02 by Nasir Pino MD RISK FACTORS HTN CAD DM TREATMENT: He received amiodarone and Cardizem- Documented in H&P /02 by Nasir Pino MD Diltiazem IVPB - Documented in Medication report (This form is maintained as a part of the permanent medical record) 2014 [email or web address]. All Rights Reserved [email or web address] [not provided] MTDD
== END 2019-11-27 15:10 | disposition home or self-care (01) | DRG 309 ==
LOC: ERS 02:23 → ERHOLD 04:47 → IMCU/EMU 15:17
PROVIDERS: ADMIT Internal Medicine; ATTEND Internal Medicine
DX: I48.91 Unspecified atrial fibrillation (principal); L76.32 Postprocedural hematoma of skin and subcutaneous tissue following other procedure; E66.9 Obesity, unspecified; I25.10 Atherosclerotic heart disease of native coronary artery without angina pectoris; I10 Essential (primary) hypertension; E11.9 Type 2 diabetes mellitus without complications; G47.33 Obstructive sleep apnea (adult) (pediatric); Z79.82 Long term (current) use of aspirin; Z79.899 Other long term (current) drug therapy; Z95.5 Presence of coronary angioplasty implant and graft; I25.2 Old myocardial infarction; Z87.891 Personal history of nicotine dependence; Z90.49 Acquired absence of other specified parts of digestive tract; Z88.5 Allergy status to narcotic agent; Z68.35 Body mass index [BMI] 35.0-35.9, adult; Y83.9 Surgical procedure, unspecified as the cause of abnormal reaction of the patient, or of later complication, without mention of misadventure at the time of the procedure; E83.42 Hypomagnesemia
CPT/HCPCS: 36415; 36416; 80048; 82553; 83735; 84484; 85025; 86850; 86900; 86901; 93005; 93798; 96365; 96366; 96368; 96376; J0282; J1160; J1650; J3475; J3490; J7070

== ENCOUNTER 2019-12-14 10:15 | Inpatient (IN) | payer MEDICARE, OTHER ==
[2019-12-14 12:13] LABS: #Eosinphils 0.3 thou/uL (0.0-0.7); #Lymphocytes 1.4 thou/uL (1.20-3.40); #Monocytes 0.8 thou/uL (0.11-0.59); #Neutrophils 6.3 thou/uL (1.40-6.50); %Basophils 0.4 % (0.0-1.0); %Eosinophils 3.5 % (0.0-10.0); %Monocytes 8.6 % (0.0-10.0); %Neutrophils 71.5 % (42.0-75.0); Hemoglobin 15.9 g/dL (14.0-18.0); Mean Corpuscular HGB CONC 32.8 g/dL (32.0-36.0); Mean Corpuscular Hemoglobin 31.5 pg (27.0-31.0); Mean Platelet Volume 9.5 fL (7.4-10.4); Platelet Count 265 thou/uL (130-400); RBC Distribution Width 12.4 % (11.5-14.5); Red Blood Cell (RBC) Count 5.03 mill/uL (4.70-6.10); White Blood Cell (WBC) Count 8.8 thou/uL (4.8-10.8)
[2019-12-14 12:23] LABS: Anion Gap 16 mmol/L (10-20); BUN (Urea Nitrogen) 18 mg/dL (8.4-25.7); Calc. Creatinine Clearance 0 mL/min (70-130); Calcium 10.6 mg/dL (7.8-10.44); Carbon Dioxide 21 mmol/L (23-31); Chloride 102 mmol/L (98-107); Estimated GFR-MDRD 79; Glucose 140 mg/dL (83-110); Potassium 4.9 mmol/L (3.5-5.1); Sodium 134 mmol/L (136-145)
[2019-12-15] MEDS ORDERED: Midazolam HCl 5 mg/5 ml Vial ONE (06:47)
[2019-12-15] MEDS ORDERED: Vecuronium 10 MG VIAL ONE ×2 (06:47→12:36)
[2019-12-15] MEDS ORDERED: Fentanyl 250 MCG/5 ML VIAL ONE (06:47)
[2019-12-15] MEDS ORDERED: Dexmedetomidine 200 MCG/2 ML VIAL ONE (06:47)
[2019-12-15] MEDS ORDERED: Albumin 5% 500 ML ONE (06:50)
[2019-12-15] MEDS ORDERED: Heparin 10,000 UNITS/1 ML VIAL 30,000 UNITS in Sodium Chloride 0.9% 1,000 ML FS SCH (07:00)
[2019-12-15] MEDS ORDERED: Midazolam HCl 2 mg/2 ml Vial ONE (07:06)
[2019-12-15] MEDS ORDERED: Insulin Regular 300 UNITS/3 ML VIAL ONE (08:31)
[2019-12-15] MEDS ORDERED: DOPamine 400 MG/D5W 250 ML 250 ML IVPB PRN (11:35)
[2019-12-15] MEDS ORDERED: Acetaminophen 325 MG TAB PO PRN (11:35)
[2019-12-15] MEDS ORDERED: Potassium Chloride 20 MEQ/100 ML PREMIX BAG IVPB PRN (11:35)
[2019-12-15] MEDS ORDERED: Fentanyl 100 MCG/2 ML VIAL SLOW IVP PRN (11:35)
[2019-12-15] MEDS ORDERED: niCARdipine 25 MG in Sodium Chloride 0.9% 250 ML 250 ML IVPB PRN (11:35)
[2019-12-15] MEDS ORDERED: Hetastarch 6% 500 ML 500 ML IVPB PRN (11:35)
[2019-12-15] MEDS ORDERED: Mag-Al 1200 mg/1200 mg/30 ML UDCUP PO PRN (11:35)
[2019-12-15] MEDS ORDERED: Post-Op Insulin Drip Protocol IVPB ONE (11:35)
[2019-12-15] MEDS ORDERED: Bisacodyl 10 MG SUPP PR PRN (11:35)
[2019-12-15] MEDS ORDERED: Morphine 2 MG/ML SYRINGE SLOW IVP PRN (11:35)
[2019-12-15] MEDS ORDERED: Guaifenesin DM 100-10/5 ML UDCUP PO PRN (11:35)
[2019-12-15] MEDS ORDERED: hydrALAZINE 20 MG/ML VIAL SLOW IVP PRN (11:35)
[2019-12-15] MEDS ORDERED: Nitroglycerin 50 MG/250 ML BOT 250 ML IVPB PRN (11:35)
[2019-12-15] MEDS ORDERED: Amiodarone 450 MG in Dextrose 5% in Water 250 ML IVPB SCH (11:35)
[2019-12-15] MEDS ORDERED: Norepinephrine 8 MG/0.9% NS 250 ML IVPB PRN (11:35)
[2019-12-15] MEDS ORDERED: Magnesium 2 GM/50 ML 2 GM in Premix Bag 1 BAG IVPB SCH (11:35)
[2019-12-15] MEDS ORDERED: Bisacodyl 5 MG TAB PO PRN (11:35)
[2019-12-15 11:46] LABS: CO2 Tension 42.6 mmHg (35.0-45.0); Calcium, Ionized 1.14 mmol/L (1.12-1.30); Hemoglobin (Hb) 13.5 g/dL (14.0-18.0); O2 Tension (PaO2) 170.9 mmHg (> 70.0); Potassium - ABG Lab 4.41 mmol/L (3.70-5.30); pH, Arterial 7.31 (7.35-7.45)
[2019-12-15 11:53] LABS: #Basophils 0.1 thou/uL (0.0-0.2); #Eosinphils 0.1 thou/uL (0.0-0.7); #Lymphocytes 1.2 thou/uL (1.20-3.40); #Monocytes 1.1 thou/uL (0.11-0.59); %Basophils 0.4 % (0.0-1.0); %Eosinophils 0.9 % (0.0-10.0); %Lymphocytes 8.2 % (21.0-51.0); %Monocytes 7.3 % (0.0-10.0); %Neutrophils 83.2 % (42.0-75.0); Hemoglobin 13.5 g/dL (14.0-18.0); Mean Corpuscular HGB CONC 34.2 g/dL (32.0-36.0); Mean Corpuscular Hemoglobin 33.3 pg (27.0-31.0); Mean Corpuscular Volume 97.3 fL (78.0-98.0); Mean Platelet Volume 8.7 fL (7.4-10.4); Platelet Count 170 thou/uL (130-400); RBC Distribution Width 12.4 % (11.5-14.5); Red Blood Cell (RBC) Count 4.06 mill/uL (4.70-6.10); White Blood Cell (WBC) Count 14.5 thou/uL (4.8-10.8)
[2019-12-15] MEDS ORDERED: Fentanyl 100 MCG/2 ML VIAL ONE (12:00)
[2019-12-15 12:02] LABS: INR-International Normal Ratio 1.2; PTT 27.6 SEC (22.9-36.1); Prothrombin Time 15.3 SEC (12.0-14.7)
[2019-12-15] MEDS ORDERED: Dextrose 5% in Water 1,000 ML IV PRN (12:15)
[2019-12-15] MEDS ORDERED: Insulin Regular 300 UNITS/3 ML VIAL SC PRN (12:15)
[2019-12-15] MEDS ORDERED: HUMULIN R 100 UNITS in Sodium Chloride 0.9% 100 ML IVPB SCH (12:15)
[2019-12-15] MEDS ORDERED: Dextrose 50% Abboject 50 ML SYRINGE SLOW IVP PRN (12:15)
--- NOTE | 2019-12-15 12:15 | RAD ---
AP CHEST: Date: 12/15/2019 HISTORY: Postop sternotomy. COMPARISON: 11/11/19. FINDINGS: Mild cardiomegaly with postop sternotomy change. Lungs appear aerated and clear of focal infiltrate. Possibly some mild atelectasis in the left lower lung which appears linear. IMPRESSION: Postop sternotomy changes. No acute lung process. Central line appears adequately positioned overlyin g the SVC. POS: [facility]
[2019-12-15 12:25] LABS: Anion Gap 12 mmol/L (10-20); BUN (Urea Nitrogen) 18 mg/dL (8.4-25.7); Calc. Creatinine Clearance 123 mL/min (70-130); Calcium 7.8 mg/dL (7.8-10.44); Carbon Dioxide 23 mmol/L (23-31); Chloride 109 mmol/L (98-107); Estimated GFR-MDRD Greater than 90; Glucose 102 mg/dL (83-110); Potassium 4.5 mmol/L (3.5-5.1); Sodium 139 mmol/L (136-145)
[2019-12-15] MEDS ORDERED: Glycopyrrolate 0.2 MG/ML 5 ML SYRINGE ONE (12:36)
[2019-12-15] MEDS ORDERED: Thrombin 5000 UNITS/5 ML VIAL ONE (12:36)
[2019-12-15] MEDS ORDERED: Nitroglycerin 50 MG/250 ML BOT ONE (12:36)
[2019-12-15] MEDS ORDERED: Lidocaine 1% PF 5 ML VIAL ONE (12:36)
[2019-12-15] MEDS ORDERED: Calcium Chloride 1 GM/10 ML Abboject SYRINGE ONE (12:36)
[2019-12-15] MEDS ORDERED: Heparin 30,000 units/30 ml VIAL ONE (12:36)
[2019-12-15] MEDS ORDERED: Ketorolac Tromethamine 30 MG/ML VIAL ONE (12:36)
[2019-12-15] MEDS ORDERED: PROPOFOL 200 MG/20 ML VIAL ONE (12:36)
[2019-12-15] MEDS ORDERED: Protamine Sulfate 250 MG/25 ML VIAL ONE (12:36)
[2019-12-15] MEDS ORDERED: Potassium Chloride 60 MEQ/30 ML VIAL ONE (12:36)
[2019-12-15] MEDS ORDERED: Sodium Bicarb 50 MEQ/50 ML Abboject 8.4% SYRINGE ONE (12:36)
[2019-12-15] MEDS ORDERED: Heparin 5,000 UNITS/ML VIAL ONE (12:36)
[2019-12-15] MEDS ORDERED: Aminocaproic Acid 5 GM/20 ML VIAL ONE (12:36)
[2019-12-15] MEDS ORDERED: Norepinephrine 4 MG/4 ML VIAL ONE (12:36)
[2019-12-15] MEDS ORDERED: Ondansetron PF 4 MG/2 ML Vial ONE (12:36)
[2019-12-15] MEDS ORDERED: Lidocaine 2% PF 5 ML VIAL ONE (12:36)
[2019-12-15] MEDS ORDERED: Magnesium Sulfate 1 GM/2 ML VIAL ONE (12:36)
[2019-12-15] MEDS ORDERED: Papaverine 60 MG/2 ML VIAL ONE (12:36)
[2019-12-15] MEDS ORDERED: Cardioplegic Soln 1,000 ML BAG ONE (12:36)
[2019-12-15] MEDS: Ketorolac Tromethamine 30 MG/ML VIAL IVP SCH ×2 (12:53→17:32)
[2019-12-15] MEDS: Lactated Ringer's 1,000 ML IV SCH (12:54)
[2019-12-15 13:13] LABS: Puncture Site ALINE
--- NOTE | 2019-12-15 13:55 | OP ---
DATE OF PROCEDURE: 12/15/2019 PREOPERATIVE DIAGNOSES: Coronary artery disease and paroxysmal atrial fibrillation. PROCEDURES PERFORMED: Coronary artery bypass graft x3, left internal mammary artery to a 1.5 mm LAD, saphenous vein good quality somewhat large to a 1.5 mm diagonal, 1.5 mm obtuse marginal. Right coronary system was too small to graft and the patient had a left atrial appendage ligation. SUPERVISOR SOAKERS: Zofia. TRANSFUSION: None. DESCRIPTION OF PROCEDURE: After adequate anesthesia had been obtained, the patient was prepped and draped. I performed a median sternotomy while Dr. Armijo did an endovascular vein harvest of the left greater saphenous vein. After heparinization, the mammary was divided distally and passed posterior to the thymus gland. Aorta was rather short given his body habitus and it was cannulated above the pericardial reflection. Right atrium was cannulated and cardiopulmonary bypass begun. ISAIAS suggested an EF of about 35% prior to going on bypass. The vessels were inspected for grafting. The aorta was cross clamped and after a liter of [place] cardioplegic solution, heart was elevated out of the pericardium and a double row of horizontal mattress 4-0 Prolene was used to ligate the appendage on the left atrium. Following this, the 3 distal anastomoses were completed, passing a 1 mm probe through the OM prior to completing the suture line. Cross-clamp was removed. Partial occluding clamp was placed and 2 vein grafts anastomosed to the aortic root, marked with rings. Grafts lie nicely in the pericardium. The patient was weaned from cardiopulmonary bypass. Cannula was removed. Protamine given systemically. Mediastinal and left pleural drains were placed, following which the sternum was reapproximated with #7 interrupted wire using vancomycin paste on the sternal edges, platelet rich blood, and platelet poor plasma. Subcutaneous tissue and skin were closed in layers. Job ID: [id number]
[2019-12-15] MEDS: CEFAZOLIN 2 GM in Premix Bag 1 BAG IVPB SCH ×2 (14:03→22:07)
[2019-12-15] MEDS: Fentanyl 100 MCG/2 ML VIAL SLOW IVP PRN ×4 (15:25→22:16)
[2019-12-15 16:58] LABS: Hemoglobin 13.2 g/dL (14.0-18.0)
[2019-12-15 17:16] LABS: Potassium 4.5 mmol/L (3.5-5.1)
[2019-12-15] MEDS: traMADol HCl 50 MG TAB PO PRN (20:13)
[2019-12-15] MEDS ORDERED: Famotidine/PF 20 mg/2ml Vial SLOW IVP SCH (21:00)
[2019-12-15] MEDS ORDERED: Atorvastatin Calcium 20 MG TAB PO SCH (21:00)
[2019-12-16] MEDS: Ketorolac Tromethamine 30 MG/ML VIAL IVP SCH ×4 (00:08→17:06)
[2019-12-16] MEDS: Lactated Ringer's 1,000 ML IV SCH (00:09)
[2019-12-16] MEDS: Fentanyl 100 MCG/2 ML VIAL SLOW IVP PRN (03:07)
[2019-12-16] MEDS: traMADol HCl 50 MG TAB PO PRN ×2 (03:07→08:33)
[2019-12-16 05:10] LABS: #Eosinphils 0.1 thou/uL (0.0-0.7); #Lymphocytes 0.8 thou/uL (1.20-3.40); #Neutrophils 8.2 thou/uL (1.40-6.50); %Basophils 0.3 % (0.0-1.0); %Lymphocytes 7.4 % (21.0-51.0); %Monocytes 9.8 % (0.0-10.0); %Neutrophils 81.5 % (42.0-75.0); Hemoglobin 12.5 g/dL (14.0-18.0); Mean Corpuscular HGB CONC 32.2 g/dL (32.0-36.0); Mean Corpuscular Hemoglobin 31.6 pg (27.0-31.0); Mean Corpuscular Volume 98.2 fL (78.0-98.0); Mean Platelet Volume 9.4 fL (7.4-10.4); Platelet Count 166 thou/uL (130-400); RBC Distribution Width 12.5 % (11.5-14.5); Red Blood Cell (RBC) Count 3.94 mill/uL (4.70-6.10); White Blood Cell (WBC) Count 10.1 thou/uL (4.8-10.8)
[2019-12-16 05:12] LABS: Anion Gap 11 mmol/L (10-20); BUN (Urea Nitrogen) 15 mg/dL (8.4-25.7); Calc. Creatinine Clearance 145 mL/min (70-130); Calcium 8.2 mg/dL (7.8-10.44); Carbon Dioxide 25 mmol/L (23-31); Chloride 106 mmol/L (98-107); Estimated GFR-MDRD Greater than 90; Glucose 163 mg/dL (83-110); Potassium 4.3 mmol/L (3.5-5.1); Sodium 138 mmol/L (136-145)
[2019-12-16] MEDS: CEFAZOLIN 2 GM in Premix Bag 1 BAG IVPB SCH (06:15)
[2019-12-16] MEDS ORDERED: Bisacodyl 10 MG SUPP PR PRN (07:17)
[2019-12-16] MEDS ORDERED: Mag-Al 1200 mg/1200 mg/30 ML UDCUP PO PRN (07:17)
[2019-12-16] MEDS ORDERED: Milk Of Magnesia 30 ML UDCUP PO PRN (07:17)
[2019-12-16] MEDS ORDERED: Acetaminophen 325 MG TAB PO PRN (07:17)
[2019-12-16] MEDS ORDERED: Fentanyl 100 MCG/2 ML VIAL SLOW IVP PRN (07:17)
[2019-12-16] MEDS ORDERED: Bisacodyl 5 MG TAB PO PRN (07:17)
[2019-12-16] MEDS ORDERED: Guaifenesin DM 100-10/5 ML UDCUP PO PRN (07:17)
[2019-12-16] MEDS ORDERED: Mineral Oil ENEMA PR PRN (07:17)
[2019-12-16] MEDS ORDERED: Nitroglycerin 0.4 MG TAB (25 Tab Bottle) SL PRN (07:17)
[2019-12-16] MEDS ORDERED: Dextrose 50% Abboject 50 ML SYRINGE SLOW IVP PRN (07:40)
[2019-12-16] MEDS ORDERED: Dextrose 5% in Water 1,000 ML IV PRN (07:40)
--- NOTE | 2019-12-16 08:13 | RAD ---
Portable chest: HISTORY: Postop sternotomy. COMPARISON: 12/15/2019. FINDINGS: Opacification of the left lung base consistent with left basilar atelectasis or infiltrate. Evidence of small bilateral effusions obscuring the CP angles. There is cardiomegaly with postop sternotomy change. Central line overlies the SVC. IMPRESSION: Evidence of small bilateral effusions and left basilar atelectasis or infiltrate. POS: [facility]
[2019-12-16] MEDS: Aspirin 325 mg Enteric Coated Tablet PO SCH (08:33)
[2019-12-16] MEDS: glipiZIDE 5 MG TAB PO SCH ×2 (08:33→17:09)
[2019-12-16] MEDS: Famotidine 20 MG TAB PO SCH ×2 (08:33→20:46)
[2019-12-16] MEDS: Polyethylene Glycol 3350 17 GM Packet PO SCH (08:39)
[2019-12-16] MEDS ORDERED: Aspirin 325 MG TAB PO SCH (09:00)
[2019-12-16] MEDS ORDERED: Amiodarone 200 MG TAB PO SCH (09:00)
[2019-12-16] MEDS: HYDROcodone/Acetaminophen 5/325 mg Tablet PO PRN ×2 (10:00→20:46)
[2019-12-16 10:32] LABS: Hemoglobin 13.5 g/dL (14.0-18.0)
--- NOTE | 2019-12-16 10:52 | RAD ---
Chest AP view INDICATION: Bleeding from the chest tube COMPARISON: Chest radiograph dated May 16, 2020 5:22 AM FINDINGS: Lungs:Left basilar atelectasis persists. The right lung is clear. Left-sided thoracostomy tube is unc hanged in projection and position. Cardiac silhouette:Mild cardiomegaly with midline sternotomy changes are stable. Pulmonary vasculature:Normal Pleural spaces:Tiny bilateral pleural effusions persist. No pneumothorax. Upper abdomen:No abnormality seen. Osseous structures: No acute osseous abnormality. Additional findings:None. IMPRESSION: Stable examination from the comparison. Left-sided thoracostomy tube appears unchanged in position.
[2019-12-16] MEDS: Insulin Regular 300 UNITS/3 ML VIAL SC PRN ×3 (11:41→21:09)
[2019-12-16] MEDS: Atorvastatin Calcium 40 MG TAB PO SCH (20:46)
[2019-12-16] MEDS: Amiodarone 200 MG TAB PO SCH (20:46)
[2019-12-17] MEDS: Ketorolac Tromethamine 30 MG/ML VIAL IVP SCH ×5 (00:40→23:29)
[2019-12-17] MEDS: HYDROcodone/Acetaminophen 5/325 mg Tablet PO PRN ×2 (03:56→20:10)
[2019-12-17 04:19] LABS: #Eosinphils 0.3 thou/uL (0.0-0.7); #Lymphocytes 1.1 thou/uL (1.20-3.40); #Monocytes 1.2 thou/uL (0.11-0.59); #Neutrophils 7.2 thou/uL (1.40-6.50); %Basophils 0.5 % (0.0-1.0); %Eosinophils 3.4 % (0.0-10.0); %Lymphocytes 10.9 % (21.0-51.0); %Monocytes 11.8 % (0.0-10.0); %Neutrophils 73.5 % (42.0-75.0); Hemoglobin 11.5 g/dL (14.0-18.0); Mean Corpuscular HGB CONC 32.7 g/dL (32.0-36.0); Mean Corpuscular Hemoglobin 31.9 pg (27.0-31.0); Mean Corpuscular Volume 97.5 fL (78.0-98.0); Mean Platelet Volume 9.2 fL (7.4-10.4); Platelet Count 153 thou/uL (130-400); RBC Distribution Width 12.1 % (11.5-14.5); White Blood Cell (WBC) Count 9.8 thou/uL (4.8-10.8)
[2019-12-17] MEDS: glipiZIDE 5 MG TAB PO SCH ×2 (06:57→17:37)
[2019-12-17] MEDS: Insulin Regular 300 UNITS/3 ML VIAL SC PRN ×3 (06:59→17:38)
[2019-12-17] MEDS: Potassium Chloride 10 MEQ TAB PO SCH (06:59)
[2019-12-17] MEDS ORDERED: glipiZIDE 5 MG TAB PO SCH (08:00)
[2019-12-17] MEDS: Amiodarone 200 MG TAB PO SCH ×2 (08:48→20:09)
[2019-12-17] MEDS: Aspirin 325 mg Enteric Coated Tablet PO SCH (08:49)
[2019-12-17] MEDS: Famotidine 20 MG TAB PO SCH ×2 (08:54→20:09)
[2019-12-17] MEDS: Furosemide 40 MG TAB PO SCH (08:54)
[2019-12-17] MEDS: traMADol HCl 50 MG TAB PO PRN (08:58)
[2019-12-17] MEDS: Polyethylene Glycol 3350 17 GM Packet PO SCH (09:01)
--- NOTE | 2019-12-17 09:05 | RAD ---
CHEST 1 VIEW: HISTORY: Postop coronary artery bypass graft. COMPARISON: 12/16/2019. FINDINGS: Poor inspiration with some increased pleural and parenchymal opacity changes in the left base. Right subclavian catheter. No significant pneumothorax or other acute process. IMPRESSION: Stable postoperative chest. POS: TPC
[2019-12-17] MEDS: Atorvastatin Calcium 40 MG TAB PO SCH (20:09)
[2019-12-18] MEDS: HYDROcodone/Acetaminophen 5/325 mg Tablet PO PRN ×4 (03:16→20:46)
[2019-12-18] MEDS: Ketorolac Tromethamine 30 MG/ML VIAL IVP SCH ×2 (05:26→12:34)
[2019-12-18] MEDS: glipiZIDE 5 MG TAB PO SCH ×2 (09:09→17:10)
[2019-12-18] MEDS: Potassium Chloride 10 MEQ TAB PO SCH (09:09)
[2019-12-18] MEDS: Amiodarone 200 MG TAB PO SCH ×2 (09:49→20:46)
[2019-12-18] MEDS: Polyethylene Glycol 3350 17 GM Packet PO SCH (09:49)
[2019-12-18] MEDS: Aspirin 325 mg Enteric Coated Tablet PO SCH (09:49)
[2019-12-18] MEDS: Furosemide 40 MG TAB PO SCH (09:49)
[2019-12-18] MEDS: Famotidine 20 MG TAB PO SCH ×2 (09:49→20:46)
[2019-12-18] MEDS: Insulin Regular 300 UNITS/3 ML VIAL SC PRN ×3 (12:34→20:46)
--- NOTE | 2019-12-18 15:20 | PDOC.CPN ---
- Subjective Date: 12/18/19 Time: 14:40 Interval history: no overnight events. Patient with c/o edema. - Review of Systems General: denies: fever/chills, weight/appetite/sleep changes, night sweats, fatigue Respiratory: denies: cough, congestion, shortness of breath, exercise intolerance Cardiovascular: denies: chest pain, palpitation, edema, paroxysmal nocturnal dyspnea, orthopnea Gastrointestinal: denies: nausea, vomiting, diarrhea, constipation, abd pain, GI bleeding Musculoskeletal: reports: swelling Neurological: denies: numbness, syncope, seizure, weakness - Objective Allergies/Adverse Reactions: Allergies Allergy/AdvReac Type Severity Reaction Status Date / Time Opioids - Morphine Analogues Allergy Verified 11/11/19 11:25 Opioids-Meperidine and Allergy Verified 11/11/19 11:25 Related Opioids-Methadone and Related Allergy Verified 11/11/19 11:25 Visit Medications: Current Medications Acetaminophen (Tylenol) 650 mg PO Q6H PRN PRN Reason: Headache/Fever or Pain Hydrocodone Bitart/Acetaminophen ([place] 5/325) 1 tab PO Q4H PRN PRN Reason: Moderate Pain (4-6) Last Admin: 12/18/19 09:10 Dose: 1 tab Hydrocodone Bitart/Acetaminophen ([place] 5/325) 2 tab PO Q4H PRN PRN Reason: Severe Pain (7-10) Last Admin: 12/18/19 03:16 Dose: 2 tab Al Hydroxide/Mg Hydroxide (Maalox) 30 ml PO Q4H PRN PRN Reason: Indigestion Albuterol/Ipratropium (Duoneb) 3 ml NEB [id number] PRN PRN Reason: Respiratory Distress Amiodarone HCl (Cordarone) 200 mg PO BID [facility] Last Admin: 12/18/19 09:49 Dose: 200 mg Aspirin (Ecotrin) 325 mg PO DAILY [facility] Last Admin: 12/18/19 09:49 Dose: 325 mg Atorvastatin Calcium (Lipitor) 40 mg PO HS [facility] Last Admin: 12/17/19 20:09 Dose: 40 mg Bisacodyl (Dulcolax) 10 mg PO Q12H PRN PRN Reason: Constipation Bisacodyl (Dulcolax) 10 mg MA Q12H PRN PRN Reason: Constipation Dextrose/Water (Dextrose 50%) 25 gm SLOW IVP PRN PRN PRN Reason: PER HYPOGLYCEMIC PROTOCOL Famotidine (Pepcid) 20 mg PO BID [facility] Last Admin: 12/18/19 09:49 Dose: 20 mg Fentanyl (Sublimaze) 50 mcg SLOW IVP Q2H PRN PRN Reason: Severe breakthrough pain Furosemide (Lasix) 40 mg PO DAILY [facility] Last Admin: 12/18/19 09:49 Dose: 40 mg Glipizide (Glucotrol) 10 mg PO BID-AC [facility] Last Admin: 12/18/19 09:09 Dose: 10 mg Glucagon (Glucagon) 1 mg SC PRN PRN PRN Reason: PER HYPOGLYCEMIC PROTOCOL Guaifenesin/Dextromethorphan (Robitussin Dm) 15 ml PO Q4H PRN PRN Reason: Cough Dextrose/Water (D5w) 1,000 mls @ 0 mls/hr IV INF PRN PRN Reason: PRN HYPOGLYCEMIC PROTOCOL Insulin Human Regular (Humulin R) 0 units SC Q4H PRN; Protocol PRN Reason: POST OP SLIDING SCALE Last Admin: 12/18/19 12:34 Dose: 4 units Magnesium Hydroxide (Milk Of Magnesium) 30 ml PO Q12H PRN PRN Reason: Constipation Metoprolol Succinate (Toprol Xl) 50 mg PO DAILY [facility] Mineral Oil (Fleet Mineral Oil) 133 ml [place] DAILYPRN PRN PRN Reason: Constipation Nitroglycerin (Nitrostat) 0.4 mg SL Q5MIN PRN PRN Reason: Chest Pain Polyethylene Glycol (Miralax) 17 gm PO DAILY [facility] Last Admin: 12/18/19 09:49 Dose: 17 gm Potassium Chloride (Klor-Con 10) 10 meq PO QAM-WM [facility] Last Admin: 12/18/19 09:09 Dose: 10 meq Sodium Chloride (Flush - Normal Saline) 10 ml IVF Q12HR [facility] Last Admin: 12/18/19 09:50 Dose: 10 ml Sodium Chloride (Flush - Normal Saline) 10 ml IVF PRN PRN PRN Reason: Saline Flush Tramadol HCl (Ultram) 100 mg PO Q6H PRN PRN Reason: Pain Last Admin: 12/17/19 08:58 Dose: 100 mg Vital Signs & Weight: Vital Signs Temp Pulse Pulse Pulse Resp BP BP 12/18/19 11:24 99.1 F 80 20 12/18/19 08:32 95 87 195/72 H 143/68 H 12/18/19 07:15 98.1 F 88 18 12/18/19 03:51 97.8 F 76 16 BP BP Pulse Ox Pulse Ox Pulse Ox 12/18/19 11:24 132/62 97 12/18/19 08:32 97 97 12/18/19 07:15 142/65 H 97 12/18/19 03:51 132/60 93 L Weight 249 lb 12.54 oz - Physical Exam General: alert & oriented x3, appears well HEENT: mucus membranes moist Neck: supple neck Cardiac: regular rate and rhythm, no murmur Lungs: clear to auscultation, other (decreased effort) Neuro: grossly intact Abdomen: unremarkable Extremities: no cyanosis, 1+ LE edema Skin: clear Musculoskeletal: no pain - Labs Result Diagrams: 12/17/19 03:30 12/16/19 04:35 - Assessment/Plan Assessment/Plan: 1. s/p CABG x 3 2. RADHA 3. AF/AT 4. DM-II Continue ASA, statin, bblocker and lasix. Continue PT. RHythm stable. On Amio. RG-Pt seen and examined. Agree with the above.
[2019-12-18 17:23] VITALS: BMI 35.7
[2019-12-18] MEDS: Atorvastatin Calcium 40 MG TAB PO SCH (20:46)
[2019-12-19] MEDS: HYDROcodone/Acetaminophen 5/325 mg Tablet PO PRN ×2 (05:35→10:49)
[2019-12-19] MEDS: glipiZIDE 5 MG TAB PO SCH (08:23)
[2019-12-19] MEDS: Famotidine 20 MG TAB PO SCH (08:24)
[2019-12-19] MEDS: Amiodarone 200 MG TAB PO SCH (08:24)
[2019-12-19] MEDS: Polyethylene Glycol 3350 17 GM Packet PO SCH (08:24)
[2019-12-19] MEDS: Potassium Chloride 10 MEQ TAB PO SCH (08:24)
[2019-12-19] MEDS: Furosemide 40 MG TAB PO SCH (08:24)
[2019-12-19] MEDS: Aspirin 325 mg Enteric Coated Tablet PO SCH (08:24)
[2019-12-19] MEDS ORDERED: Ramipril 5 MG CAP PO SCH (09:00)
--- NOTE | 2019-12-19 09:44 | PDOC.CPN ---
- Subjective Date: 12/19/19 Time: 09:10 Interval history: No overnight events. States that he had increased pain as he got behind on meds. Rhythm stable. BP elevating. - Review of Systems General: denies: fever/chills, weight/appetite/sleep changes, night sweats, fatigue Respiratory: denies: cough, congestion, shortness of breath, exercise intolerance Cardiovascular: denies: chest pain, palpitation, edema, paroxysmal nocturnal dyspnea, orthopnea Gastrointestinal: denies: nausea, vomiting, diarrhea, constipation, abd pain, GI bleeding Musculoskeletal: reports: pain (chest wall at incision) Neurological: denies: numbness, syncope, seizure, weakness - Objective Allergies/Adverse Reactions: Allergies Allergy/AdvReac Type Severity Reaction Status Date / Time Opioids - Morphine Analogues Allergy Verified 11/11/19 11:25 Opioids-Meperidine and Allergy Verified 11/11/19 11:25 Related Opioids-Methadone and Related Allergy Verified 11/11/19 11:25 Visit Medications: Current Medications Acetaminophen (Tylenol) 650 mg PO Q6H PRN PRN Reason: Headache/Fever or Pain Hydrocodone Bitart/Acetaminophen ([place] 5/325) 1 tab PO Q4H PRN PRN Reason: Moderate Pain (4-6) Last Admin: 12/18/19 17:19 Dose: 1 tab Hydrocodone Bitart/Acetaminophen ([place] 5/325) 2 tab PO Q4H PRN PRN Reason: Severe Pain (7-10) Last Admin: 12/19/19 05:35 Dose: 2 tab Al Hydroxide/Mg Hydroxide (Maalox) 30 ml PO Q4H PRN PRN Reason: Indigestion Albuterol/Ipratropium (Duoneb) 3 ml NEB [id number] PRN PRN Reason: Respiratory Distress Amiodarone HCl (Cordarone) 200 mg PO BID [facility] Last Admin: 12/19/19 08:24 Dose: 200 mg Aspirin (Ecotrin) 325 mg PO DAILY [facility] Last Admin: 12/19/19 08:24 Dose: 325 mg Atorvastatin Calcium (Lipitor) 40 mg PO HS [facility] Last Admin: 12/18/19 20:46 Dose: 40 mg Bisacodyl (Dulcolax) 10 mg PO Q12H PRN PRN Reason: Constipation Last Admin: 12/19/19 08:25 Dose: 10 mg Bisacodyl (Dulcolax) 10 mg SD Q12H PRN PRN Reason: Constipation Dextrose/Water (Dextrose 50%) 25 gm SLOW IVP PRN PRN PRN Reason: PER HYPOGLYCEMIC PROTOCOL Famotidine (Pepcid) 20 mg PO BID [facility] Last Admin: 12/19/19 08:24 Dose: 20 mg Fentanyl (Sublimaze) 50 mcg SLOW IVP Q2H PRN PRN Reason: Severe breakthrough pain Furosemide (Lasix) 40 mg PO DAILY [facility] Last Admin: 12/19/19 08:24 Dose: 40 mg Glipizide (Glucotrol) 10 mg PO BID-AC [facility] Last Admin: 12/19/19 08:23 Dose: 10 mg Glucagon (Glucagon) 1 mg SC PRN PRN PRN Reason: PER HYPOGLYCEMIC PROTOCOL Guaifenesin/Dextromethorphan (Robitussin Dm) 15 ml PO Q4H PRN PRN Reason: Cough Dextrose/Water (D5w) 1,000 mls @ 0 mls/hr IV INF PRN PRN Reason: PRN HYPOGLYCEMIC PROTOCOL Insulin Human Regular (Humulin R) 0 units SC Q4H PRN; Protocol PRN Reason: POST OP SLIDING SCALE Last Admin: 12/18/19 20:46 Dose: 3 units Magnesium Hydroxide (Milk Of Magnesium) 30 ml PO Q12H PRN PRN Reason: Constipation Metoprolol Succinate (Toprol Xl) 100 mg PO DAILY [facility] Mineral Oil (Fleet Mineral Oil) 133 ml [place] DAILYPRN PRN PRN Reason: Constipation Nitroglycerin (Nitrostat) 0.4 mg SL Q5MIN PRN PRN Reason: Chest Pain Polyethylene Glycol (Miralax) 17 gm PO DAILY [facility] Last Admin: 12/19/19 08:24 Dose: 17 gm Potassium Chloride (Klor-Con 10) 10 meq PO QAM-WM [facility] Last Admin: 12/19/19 08:24 Dose: 10 meq Ramipril (Altace) 5 mg PO DAILY [facility] Last Admin: 12/19/19 09:24 Dose: 5 mg Sodium Chloride (Flush - Normal Saline) 10 ml IVF Q12HR [facility] Last Admin: 12/19/19 08:25 Dose: 10 ml Sodium Chloride (Flush - Normal Saline) 10 ml IVF PRN PRN PRN Reason: Saline Flush Tramadol HCl (Ultram) 100 mg PO Q6H PRN PRN Reason: Pain Last Admin: 12/17/19 08:58 Dose: 100 mg Vital Signs & Weight: Vital Signs Temp Pulse Resp BP BP Pulse Ox 12/19/19 08:12 97.7 F 90 16 157/67 H 98 12/19/19 05:38 85 178/74 H 12/19/19 04:22 98.0 F 76 14 172/76 H 97 12/18/19 23:30 97.9 F 81 16 144/65 H 98 Weight 249 lb 3.2 oz - Physical Exam General: alert & oriented x3, appears well HEENT: mucus membranes moist Neck: supple neck Cardiac: regular rate and rhythm Lungs: clear to auscultation, normal breath sounds, no wheeze, rales, rhonchi Neuro: grossly intact Abdomen: soft, non-tender Extremities: other: (trace bilateral RADHA) Musculoskeletal: normal range of motion - Labs Result Diagrams: 12/17/19 03:30 12/16/19 04:35 - Telemetry Sinus rhythms and dysrhythmias: sinus rhythm - Assessment/Plan Assessment/Plan: 1. s/p CABG x 3 2. RADHA - improved 3. Paroxysmal AFib 4. DM-II 5. HTN Continue ASA, statin, bblocker and lasix. Continue PT. Add back Ramipril. Unknown at home dose. Will start at 5mg and titrate.
[2019-12-19] MEDS: Insulin Regular 300 UNITS/3 ML VIAL SC PRN (10:50)
[2019-12-19 11:51] VITALS: BP 144/68; TEMP 98.9
--- NOTE | 2019-12-20 03:24 | DIS ---
DATE OF ADMISSION: 12/15/2019 DATE OF DISCHARGE: 12/19/2019 PRINCIPAL DIAGNOSIS: Coronary artery disease. SECONDARY DIAGNOSIS: Paroxysmal atrial fibrillation. PROCEDURES PERFORMED: Coronary artery bypass grafting x3 and left atrial appendage ligation on 12/15/2019. HISTORY OF PRESENT ILLNESS AND HOSPITAL COURSE: The patient is a 74-year-old white man with diabetes and known coronary artery disease. He had an abnormal stress test, prompted cardiac catheterization with a minor complication of a groin hematoma at the cath site. He was on anticoagulation for history of atrial fibrillation. He was electively readmitted, off anticoagulation for surgical revascularization using left internal mammary artery to the graft the LAD and saphenous veins to graft the diagonal and the obtuse marginal. At the time of surgery, his right coronary system was felt to be too small to support graft. His left atrial appendage was ligated in conjunction with the procedure. He had an uneventful postoperative course. His oral hypoglycemics were gradually introduced. Toprol was gradually introduced. He was maintained on amiodarone at his previous taper 200 mg b.i.d. His ramipril and Toprol at the time of discharge were up to 10 mg a day for the ramipril and 100 mg a day for the Toprol. The patient has been tolerated [place], which had been used for pain control. He will be sent home with a prescription for that and he is being restarted on his Eliquis. Job ID: [id number]
--- NOTE | 2019-12-20 18:44 | EKG ---
Test Reason : PREOP Blood Pressure : / mmHG Vent. Rate : 066 BPM Atrial Rate : 066 BPM P-R Int : 270 ms QRS Dur : 100 ms QT Int : 472 ms P-R-T Axes : 028 -24 058 degrees QTc Int : 494 ms Sinus rhythm with 1st degree A-V block Prolonged QT Abnormal ECG When compared with ECG of 25-NOV-2019 02:43, Sinus rhythm has replaced Atrial fibrillation Vent. rate has decreased BY 74 BPM Confirmed by PJ ROSE, DR. Gr ([id number]) on 12/20/2019 6:44:07 PM Referred By: LARON Confirmed By:DR. Simón OLIVA MD
== END 2019-12-19 13:26 | disposition home or self-care (01) | DRG 236 ==
LOC: SURG A 12-15 06:05 → CCU 12-15 10:22 → 2NO 12-17 13:25
PROVIDERS: ADMIT Thoracic Surgery (Cardiothoracic Vascular Surgery); ATTEND Thoracic Surgery (Cardiothoracic Vascular Surgery)
PROC: 02100Z9 Bypass Coronary Artery, One Artery from Left Internal Mammary, Open Approach (ICD-10-PCS; principal; 2019-12-15)
PROC: 021109W Bypass Coronary Artery, Two Arteries from Aorta with Autologous Venous Tissue, Open Approach (ICD-10-PCS; 2019-12-15)
PROC: 06BQ3ZZ Excision of Left Saphenous Vein, Percutaneous Approach (ICD-10-PCS; 2019-12-15)
PROC: 5A1221Z Performance of Cardiac Output, Continuous (ICD-10-PCS; 2019-12-15)
PROC: 02L70ZK Occlusion of Left Atrial Appendage, Open Approach (ICD-10-PCS; 2019-12-15)
DX: I25.10 Atherosclerotic heart disease of native coronary artery without angina pectoris (principal); I48.0 Paroxysmal atrial fibrillation; E11.9 Type 2 diabetes mellitus without complications; E78.5 Hyperlipidemia, unspecified; G47.30 Sleep apnea, unspecified; J30.2 Other seasonal allergic rhinitis; M19.90 Unspecified osteoarthritis, unspecified site; F17.210 Nicotine dependence, cigarettes, uncomplicated; I10 Essential (primary) hypertension; Z88.5 Allergy status to narcotic agent; I25.2 Old myocardial infarction; Z95.5 Presence of coronary angioplasty implant and graft; Z79.84 Long term (current) use of oral hypoglycemic drugs; Z79.82 Long term (current) use of aspirin; Z79.899 Other long term (current) drug therapy
CPT/HCPCS: 36416; 36430; 71045; 80048; 82805; 85025; 85610; 85730; 86850; 86900; 86901; 93005; 93010; 93798; J0690; J1642; J1644; J1815; J1885; J2001; J2250; J2405; J2440; J2704; J2720; J3010; J3370; J3475; J3480; P9045; S0017; S0028

== ENCOUNTER 2020-01-03 14:46 | Outpatient (CLI) | payer MEDICARE, OTHER ==
--- NOTE | 2020-01-03 15:06 | RAD ---
CHEST 2 VIEWS: COMPARISON: 12/16/2019, 12/17/2019. HISTORY: Atherosclerotic heart disease. FINDINGS: Sternotomy wires, vascular rings are redemonstrated. There is atherosclerosis of the aorta. Heart is enlarged. Pulmonary vessels and hilum are normal. Right costophrenic angle is clear. Stable aeration of the right lung. There appears be an air-fluid level in the left lower lobe. Stable aeration the left upper lobe. Interval removal of a mediastinal drainage catheter and right-sided vascular catheter. IMPRESSION: Air-fluid level noted in the left lower lobe. Correlate for possible loculated pleural effusion. CODE T Transcribed Date/Time: 01/03/2020 3:28 PM
== END 2020-01-03 14:47 | disposition home or self-care (01) ==
LOC: RAD 14:46
PROVIDERS: ATTEND Thoracic Surgery (Cardiothoracic Vascular Surgery)
DX: I25.10 Atherosclerotic heart disease of native coronary artery without angina pectoris (principal)
CPT/HCPCS: 71046

== ENCOUNTER 2020-01-11 09:02 | Inpatient (IN) | payer MEDICARE, OTHER ==
[2020-01-11 09:52] LABS: #Basophils 0.1 thou/uL (0.0-0.2); #Eosinphils 0.5 thou/uL (0.0-0.7); #Lymphocytes 1.4 thou/uL (1.20-3.40); #Monocytes 0.7 thou/uL (0.11-0.59); #Neutrophils 6.6 thou/uL (1.40-6.50); %Basophils 0.7 % (0.0-1.0); %Lymphocytes 15.2 % (21.0-51.0); %Monocytes 7.8 % (0.0-10.0); %Neutrophils 71.3 % (42.0-75.0); Hemoglobin 13.8 g/dL (14.0-18.0); Mean Corpuscular HGB CONC 33.1 g/dL (32.0-36.0); Mean Corpuscular Hemoglobin 31.5 pg (27.0-31.0); Mean Corpuscular Volume 95.2 fL (78.0-98.0); Mean Platelet Volume 8.7 fL (7.4-10.4); Platelet Count 267 thou/uL (130-400); RBC Distribution Width 12.6 % (11.5-14.5); Red Blood Cell (RBC) Count 4.39 mill/uL (4.70-6.10); White Blood Cell (WBC) Count 9.3 thou/uL (4.8-10.8)
[2020-01-11] MEDS ORDERED: Metoprolol Tartrate 5 MG/5 ML VIAL ONE ×3 (09:56→12:10)
[2020-01-11 10:07] LABS: ALT (SGPT) 19 U/L (8-55); AST (SGOT) 17 U/L (5-34); Albumin 4.1 g/dL (3.4-4.8); Alkaline Phosphatase 81 U/L (40-110); Anion Gap 16 mmol/L (10-20); BUN (Urea Nitrogen) 15 mg/dL (8.4-25.7); Bilirubin, Total 0.3 mg/dL (0.2-1.2); Calc. Creatinine Clearance 0 mL/min (70-130); Calcium 9.5 mg/dL (7.8-10.44); Carbon Dioxide 22 mmol/L (23-31); Chloride 102 mmol/L (98-107); Estimated GFR-MDRD 82; Globulin 2.6 g/dL (2.4-3.5); Glucose 138 mg/dL (83-110); Magnesium 1.3 mg/dL (1.6-2.6); Potassium 4.2 mmol/L (3.5-5.1); Protein, Total 6.7 g/dL (5.8-8.1); Sodium 136 mmol/L (136-145)
[2020-01-11] MEDS ORDERED: Magnesium 2 GM/50 ML BAG (IN WATER) ONE (10:27)
--- NOTE | 2020-01-11 11:28 | RAD ---
CHEST 1 VIEW PORTABLE: Date: 01/11/2020 HISTORY: Atrial fibrillation. Recent triple bypass. COMPARISON: 01/03/2020. FINDINGS: Some persistent but improving pleural and parenchymal opacity changes in the left base. Heart size is within upper range of normal and stable. The right lung is clear. IMPRESSION: Persistent, slightly improving pleural and parenchymal opacity changes in the left chest/lower lobe r egion. POS: ELIJAH
[2020-01-11] MEDS ORDERED: Diltiazem 125 MG/25 ML ONE (14:05)
[2020-01-11] MEDS ORDERED: Acetaminophen 650 MG Suppository PR PRN (17:56)
[2020-01-11] MEDS ORDERED: HYDROcodone/Acetaminophen 5/325 mg Tablet PO PRN (18:12)
--- NOTE | 2020-01-11 18:23 | PDOC.HHP ---
Hospitalist HPI - History of Present Illness Atrial fibrillation History of Present Illness: PCP: Dr. Umair Levine Lithographing Machine Operator: Dr. Reid The patient is a 74/M with PMH significant for paroxysmal afib (taking eliquis) , CABG x3 (4 weeks ago w/ Rory), HTN, HLD, and DMII that presents to the Emergency department for the above complaint. Patient reports was in usual health, attending cardiac rehab session, when he was getting hooked up to a heart monitor to exercise on the treadmill and the therapist noticed a rapid heart rate, patient denies any chest pain, heart palpitations, SOB, diaphoresis or light headedness. He was completely asymptomatic. Reports that the therapist contacted Dr. Reid and he recommended that the patient go to the ER. The patient drove himself. Reports having 6 month medicare check yesterday at Dr. Stevenson and noted to have some Afib, rate controlled on EKG. ED Course: BP 170/89, HR 116, RR 16, sp02 99% RA, Temp 98F EKG flutter with PVCs, PACs Trop negative x 1 CXR shows persistent, slightly improving pleural and parenchymal opacity changes in Left lower chest/lobe region. Mg 1.3 Given Metoprolol 5mg IVP x 3 NS 1L Cardizem 15mg IVP bolus Cardizem drip at 15mg/hr Hospitalist ROS - Review of Systems Constitutional: denies: fever, chills, sweats, weakness, malaise, other ENT: denies: ear pain, ear discharge, nose pain, nose discharge, nose congestion , mouth pain, mouth swelling, throat pain, throat swelling, other Respiratory: denies: cough, dry, shortness of breath, hemoptysis, SOB with excertion, pleuritic pain, sputum, wheezing, other Cardiovascular: denies: chest pain, palpitations, orthopnea, paroxysmal noc. dyspnea, edema, light headedness, other Gastrointestinal: denies: nausea, vomiting, abdominal pain, diarrhea, constipation, melena, hematochezia, other Genitourinary: denies: dysuria, frequency, incontinence, hematuria, retention, other Skin: denies: rash, lesions, vishnu, other Neurological: reports: weakness. 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 Gastrointestinal: reports: GERD Heme/Onc: reports: no pertinent history Hepatobiliary: reports: no pertinent history Psych: reports: no pertinent history Rheumatologic: reports: no pertinent history Infectious Disease: reports: no pertinent history ENT: reports: no pertinent history Renal/: reports: no pertinent history Endocrine: reports: Diabetes Dermatology: reports: no pertinent history - Past Surgical History Past Surgical History: reports: Cholecystectomy, CABG (x 3), Other (back surgery x 2) - Family History Family History: reports: cardiac disorder - Social History Smoking Status: Never smoker Alcohol: reports: Rare Drugs: reports: none Living Situation: With Family Occupation: Lives in with spouse, retired Activity level: independent ambulation - Exam General Appearance: NAD, awake alert Neck: supple, no JVD, no thyromegaly, no lymphadenopathy Heart: no murmur, no gallops, no rubs, normal peripheral pulses, irregular Respiratory: CTAB, no wheezes, no rales, no ronchi Gastrointestinal: soft, non-tender, non-distended, normal bowel sounds, no guarding, no rigidity Extremities: no cyanosis, no clubbing, no edema Skin - other findings: healing sternum incision and CT sites x 2, LE healing incision Neurological: no focal deficits Musculoskeletal: normal tone, normal strength Psychiatric: normal affect, A&O x 3 Hospitalist Results - Labs Result Diagrams: 01/11/20 09:36 01/11/20 09:36 Lab results: WBC 9.3 thou/uL (4.8-10.8) 01/11/20 09:36 Hgb 13.8 g/dL (14.0-18.0) L 01/11/20 09:36 Hct 41.8 % (42.0-52.0) L 01/11/20 09:36 MCV 95.2 fL (78.0-98.0) 01/11/20 09:36 Plt Count 267 thou/uL (130-400) 01/11/20 09:36 Neutrophils % 71.3 % (42.0-75.0) 01/11/20 09:36 Sodium 136 mmol/L (136-145) 01/11/20 09:36 Potassium 4.2 mmol/L (3.5-5.1) 01/11/20 09:36 Chloride 102 mmol/L (98-107) 01/11/20 09:36 Carbon Dioxide 22 mmol/L (23-31) L 01/11/20 09:36 BUN 15 mg/dL (8.4-25.7) 01/11/20 09:36 Creatinine 0.91 mg/dL (0.7-1.3) 01/11/20 09:36 Glucose 138 mg/dL (83-110) H 01/11/20 09:36 Calcium 9.5 mg/dL (7.8-10.44) 01/11/20 09:36 Total Bilirubin 0.3 mg/dL (0.2-1.2) 01/11/20 09:36 AST 17 U/L (5-34) 01/11/20 09:36 ALT 19 U/L (8-55) 01/11/20 09:36 Alkaline Phosphatase 81 U/L (40-110) 01/11/20 09:36 Troponin I Less than 0.010 ng/mL (< 0.028) 01/11/20 09:36 Serum Total Protein 6.7 g/dL (5.8-8.1) 01/11/20 09:36 Albumin 4.1 g/dL (3.4-4.8) 01/11/20 09:36 Laboratory Tests 01/11/20 01/11/20 01/11/20 09:36 09:36 09:36 Magnesium 1.3 L Troponin I Less than 0.010 TSH 3rd Generation [id number] Hospitalist H&P A/P - Plan Plan: Impression: Afib w/ RVR s/p CABG x 3 (12/13) Hypomagnesium HTN HLD DMII GERD 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
[2020-01-11] MEDS ORDERED: Nitroglycerin 0.4 MG TAB (25 Tab Bottle) SL PRN (18:27)
[2020-01-11] MEDS ORDERED: Insulin Regular 300 UNITS/3 ML VIAL SC PRN (18:56)
[2020-01-11] MEDS ORDERED: Dextrose 50% Abboject 50 ML SYRINGE SLOW IVP PRN (18:56)
[2020-01-11] MEDS ORDERED: HumaLOG 300 UNITS/3 ML VIAL SC PRN ×2 (18:56→19:50)
[2020-01-11] MEDS ORDERED: Dextrose 5% in Water 1,000 ML IV PRN (18:56)
[2020-01-11 19:07] VITALS: BMI 34.0
[2020-01-11] MEDS: Diltiazem 125 MG in Sodium Chloride 0.9% 100 ML IVPB SCH ×2 (19:52→23:01)
[2020-01-11] MEDS ORDERED: Amiodarone 200 MG TAB PO SCH (21:00)
[2020-01-11] MEDS: Fish Oil 1,000 MG CAP PO SCH (22:06)
[2020-01-11] MEDS: Apixaban 5 MG TAB PO SCH (22:06)
[2020-01-11] MEDS: Atorvastatin Calcium 40 MG TAB PO SCH (22:06)
[2020-01-11] MEDS: Acetaminophen 325 MG TAB PO PRN (22:10)
[2020-01-12 06:47] LABS: #Basophils 0.1 thou/uL (0.0-0.2); #Eosinphils 0.4 thou/uL (0.0-0.7); #Lymphocytes 1.2 thou/uL (1.20-3.40); #Monocytes 0.6 thou/uL (0.11-0.59); #Neutrophils 4.5 thou/uL (1.40-6.50); %Basophils 1.1 % (0.0-1.0); %Eosinophils 5.5 % (0.0-10.0); %Lymphocytes 17.9 % (21.0-51.0); %Monocytes 9.3 % (0.0-10.0); %Neutrophils 66.2 % (42.0-75.0); Hemoglobin 13.3 g/dL (14.0-18.0); Mean Corpuscular HGB CONC 33.7 g/dL (32.0-36.0); Mean Corpuscular Hemoglobin 31.9 pg (27.0-31.0); Mean Corpuscular Volume 94.7 fL (78.0-98.0); Mean Platelet Volume 8.5 fL (7.4-10.4); Platelet Count 239 thou/uL (130-400); RBC Distribution Width 12.5 % (11.5-14.5); Red Blood Cell (RBC) Count 4.18 mill/uL (4.70-6.10); White Blood Cell (WBC) Count 6.8 thou/uL (4.8-10.8)
[2020-01-12] MEDS: Acetaminophen 325 MG TAB PO PRN ×2 (06:54→21:54)
[2020-01-12] MEDS: Diltiazem 125 MG in Sodium Chloride 0.9% 100 ML IVPB SCH ×2 (07:00→17:18)
[2020-01-12 07:11] LABS: Anion Gap 13 mmol/L (10-20); BUN (Urea Nitrogen) 11 mg/dL (8.4-25.7); Calc. Creatinine Clearance 128 mL/min (70-130); Calcium 9.1 mg/dL (7.8-10.44); Carbon Dioxide 23 mmol/L (23-31); Chloride 105 mmol/L (98-107); Estimated GFR-MDRD Greater than 90; Glucose 146 mg/dL (83-110); Magnesium 1.5 mg/dL (1.6-2.6); Potassium 3.9 mmol/L (3.5-5.1); Sodium 137 mmol/L (136-145)
[2020-01-12] MEDS: Fish Oil 1,000 MG CAP PO SCH ×2 (09:28→21:49)
[2020-01-12] MEDS: Stress 600 With Zinc 1 TAB PO SCH (09:29)
[2020-01-12] MEDS: Apixaban 5 MG TAB PO SCH ×2 (09:29→21:50)
[2020-01-12] MEDS: Ramipril 5 MG CAP PO SCH (09:30)
[2020-01-12] MEDS: Aspirin 81 mg Enteric Coated Tablet PO SCH (09:30)
[2020-01-12] MEDS: Amiodarone 200 MG TAB PO SCH (09:31)
--- NOTE | 2020-01-12 15:24 | CON ---
DATE OF CONSULTATION: 01/12/2020 REASON FOR CONSULTATION: I am seeing Mr. 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 His problems are: 1. Recurrent atrial arrhythmias. a. History of atrial fibrillation, noted in 10/2019. b. Amiodarone suppression post his bypass surgery. c. Recurrence of sustained atrial flutter on amiodarone 1 month post bypass surgery and on current admission with rapid ventricular rates. 2. Three-vessel coronary artery disease with mildly impaired LV systolic function on left heart catheterization on 11/22/2019. a. Status post CABG by Dr. Valadez with ARANGO to LAD, SVG to diagonal and obtuse marginal, and also the patient had left atrial appendage ligation as part of the surgery. 3. Type 2 diabetes. 4. Hypertension. ALLERGIES: OPIOIDS. MEDICATIONS AT HOME: Included: 1. Amiodarone 200 mg a day. 2. Ramipril. 3. Glipizide. 4. Omeprazole. 5. Nitroglycerin. 6. Apixaban 5 mg twice a day. 7. Aspirin. 8. Lipitor. 9. Vitamin B. 10. Fish oil supplement. 11. Vitamin E. 12. Hydrocodone. 13. Metoprolol. 14. Metformin. SUBJECTIVE: Mr. Goins was readmitted after being noted to have rapid heartbeats on his rehab. Overall, he is recovering well from his bypass surgery on , but more recently has developed some fatigue and tiredness. Denies sensation of palpitations. No chest pain. No fever, chills, or cough. No stroke-like symptoms. No bleeding issues on Eliquis therapy. No neurological deficits. He has no PND or orthopnea. He has fluid overload. REVIEW OF SYSTEMS: The rest of 12-point system otherwise unremarkable. PAST HISTORY: As above. SOCIAL HISTORY: The patient is . is with him today at the time of my exam. Never smoked. Denies EtOH or drug abuse. FAMILY HISTORY: Significant for ablation of her sister. OBJECTIVE DATA: VITAL SIGNS: Blood pressure 108/72, heart rate 97, respirations 16, and temperature 98.1 degrees Fahrenheit. GENERAL: This is an alert and oriented man, in no apparent distress. NECK: Supple. Jugular veins not distended. CHEST: Coarse without crackles. HEART: Sounds are regular to rate and rhythm. No murmur or gallop. ABDOMEN: Benign. Bowel sounds positive. EXTREMITIES: Lower extremities without edema, clubbing, or cyanosis. Pulses are adequate. NEUROLOGIC: The patient is nonfocal. MUSCULOSKELETAL: Without joint swelling or deformity. SKIN: Without rash. Midsternal scar is healing adequately. LABORATORY DATA: White cell count 6.8, hemoglobin 13.3, and platelet count is 239. Sodium 137, potassium 3.9, BUN is 11, and creatinine 0.79. EKG is reviewed, revealing a sustained atrial flutter, possibly typical isthmus dependent in morphology, occasional PVCs are noted. Telemetry strips also reveal 2:1 atrial flutter without response to diltiazem. ASSESSMENT AND PLAN: Mr. Goins is a very pleasant 74-year-old gentleman with history of 3-vessel coronary artery disease, mildly reduced left ventricular systolic function. He underwent a coronary artery bypass grafting surgery about a month ago, had presurgical atrial fibrillation, but has received p.o. amiodarone taper through his surgery and he has now had recurrence of an atrial flutter with rapid rate. We discussed the mechanism of atrial fibrillation and flutter, both. We discussed the potential treatment options, and I think, at this point hence his recent bypass surgery, the best strategy would be to ablate the cavotricuspid isthmus. Would likely test for atrial fibrillation, but with ongoing amiodarone therapy, this may not be inducible. Long-term after amiodarone taper, he will need to be monitored for recurrence of atrial fibrillation. In the meantime, Eliquis should be continued. I discussed the procedure of atrial flutter ablation. He understands the risks of stroke, infection, bleeding, recurrence, tamponade. He is willing to proceed. We will schedule him for likely on 01/14/2020. History of left atrial appendage ligation with bypass surgery, so far has not been evaluated. Would be reasonable to assess this with a ISAIAS. Consider performing tomorrow. Coronary artery disease, currently stable. Assess for pericardial effusion post bypass surgery, although no signs of tamponade present. Thank you again for letting me to participate in the care of this patient. Job ID: [id number] [facility]
--- NOTE | 2020-01-12 16:25 | PDOC.HOSPP ---
- Subjective Encounter Date: 01/12/20 Encounter Time: 10:50 Subjective: no sob or chest pain has palpitations, his rvr is around 130's as I examine him. is sitting in chair and ambulating in room says he was ambulating and doing well at rehab post cabg. No c/o bleeding per rectum - Objective Vital Signs & Weight: Vital Signs (12 hours) Temp Pulse Resp BP Pulse Ox 01/12/20 16:00 97.8 F 123 H 17 108/59 L 96 01/12/20 11:07 98.1 F 97 16 108/72 97 01/12/20 08:00 98.3 F 121 H 17 121/74 96 Weight Weight 236 lb 11.2 oz Result Diagrams: 01/12/20 06:39 01/12/20 06:39 Additional Labs: Accuchecks 01/12/20 01/12/20 01/11/20 10:52 05:44 20:26 POC Glucose 175 H 122 H 135 H Hospitalist ROS - Medication Medications: Active Medications Generic Name Dose Route Start Last Admin Trade Name Freq PRN Reason Stop Dose Admin Acetaminophen 650 mg 01/11/20 17:56 01/12/20 06:54 Tylenol PO 650 mg Q4H PRN Administration Headache/Fever/Mild Pain (1-3) Amiodarone HCl 200 mg 01/12/20 09:00 01/12/20 09:31 Cordarone PO 200 mg DAILY PARVEZ Administration Apixaban 5 mg 01/11/20 21:00 01/12/20 09:29 Eliquis PO 5 mg BID PARVEZ Administration Aspirin 81 mg 01/12/20 09:00 01/12/20 09:30 Ecotrin PO 81 mg DAILY PARVEZ Administration Atorvastatin Calcium 40 mg 01/11/20 21:00 01/11/20 22:06 Lipitor PO 40 mg HS PARVEZ Administration Fish Oil 2,000 mg 01/11/20 21:00 01/12/20 09:28 Fish Oil PO 2,000 mg BID PARVEZ Administration Diltiazem HCl 125 mg/ Sodium 125 mls @ 15 mls/hr 01/11/20 15:00 01/12/20 07: 00 Chloride IVPB 125 mls INF PARVEZ Administration 15 MG/HR Metoprolol Succinate 50 mg 01/11/20 21:00 01/12/20 09:29 Toprol Xl PO 50 mg BID PARVEZ Administration Multivitamins/Zinc 1 tab 01/12/20 09:00 01/12/20 09:29 Stress 600 With Zinc PO 1 tab DAILY PARVEZ Administration Pantoprazole Sodium 40 mg 01/12/20 09:00 01/12/20 09:29 Protonix PO 40 mg DAILY PARVEZ Administration Ramipril 10 mg 01/12/20 09:00 01/12/20 09:30 Altace PO 10 mg DAILY PARVEZ Administration - Exam General Appearance: awake alert Eye: PERRL, anicteric sclera ENT: no oropharyngeal lesions, moist mucosa Neck: supple, no JVD Heart: no murmur, irregular Respiratory: no wheezes, rhonchi Respiratory - other findings: decrease air entry left infrascapular area Gastrointestinal: soft, non-tender, non-distended, normal bowel sounds Extremities: no cyanosis, no edema Neurological: cranial nerve grossly intact, no focal deficits Psychiatric: normal affect, A&O x 3 Hosp A/P (1) Atrial fibrillation with RVR Code(s): I48.91 - UNSPECIFIED ATRIAL FIBRILLATION Status: Acute (2) Dyslipidemia Code(s): E78.5 - HYPERLIPIDEMIA, UNSPECIFIED Status: Chronic (3) S/P CABG x 3 Code(s): Z95.1 - PRESENCE OF AORTOCORONARY BYPASS GRAFT Status: Acute (4) CAD (coronary artery disease) Code(s): I25.10 - ATHSCL HEART DISEASE OF [place] CORONARY ARTERY W/O ANG PCTRS Status: Chronic Qualifiers: Coronary Disease-Associated Artery/Lesion type: bypass graft [place] vs. transplanted heart: [place] heart Associated angina: without angina Qualified Code(s): I25.810 - Atherosclerosis of coronary artery bypass graft(s) without angina pectoris (5) Diabetes mellitus type 2 in nonobese Code(s): E11.9 - TYPE 2 DIABETES MELLITUS WITHOUT COMPLICATIONS Status: Chronic (6) Hypertension Code(s): I10 - ESSENTIAL (PRIMARY) HYPERTENSION Status: Chronic Qualifiers: Hypertension type: essential hypertension Qualified Code(s): I10 - Essential (primary) hypertension - Plan is on cardizem drip 15mg/hr on top of amiodarone oral, toprol xl 50mg bid continue eliquis, asp, lipitor, ramipril d/w , he will have ablation on along with ISAIAS d/w about pt being hospitalized if he gets sob will need left thoracentesis, the amound on cxr is fairly stable on serial xrays i.spirometry
[2020-01-12] MEDS: Atorvastatin Calcium 40 MG TAB PO SCH (21:50)
[2020-01-13] MEDS: Diltiazem 125 MG in Sodium Chloride 0.9% 100 ML IVPB SCH ×3 (00:34→19:43)
--- NOTE | 2020-01-13 05:49 | CON ---
DATE OF CONSULTATION: HISTORY OF PRESENT ILLNESS: Quinton Reyes is an 74-year-old white male, who I initially evaluated in the office in July 2009. Prior to that in 1999, while living in [place], he began to have chest discomfort. He was hospitalized and he stated that he did have a myocardial infarction. He underwent cardiac catheterization, was found to have totally occluded right coronary artery, had a 99% circumflex lesion. Velocity 4.0 x 18 mm stent was placed in the circumflex. He underwent Cardiolite treadmill testing in January 2010 and had no evidence of ischemia. He also had a negative Cardiolite in August 2016. He returned for followup in October 2019, stating that for several months, he would become dyspneic especially if he was walking fast. He underwent cardiac PET scan, which revealed moderate inferoapical ischemia. That finding was felt to be consistent with a totally occluded right coronary artery. However, he also had 2 previous Cardiolite scans that did not demonstrate any ischemia. It was recommended, he undergo cardiac catheterization, which was performed on November 22, 2019. He had mild anterior hypokinesis with ejection fraction of 50% to 55%. There was an 80% proximal LAD near the left main, 60% to 70% lesion in the proximal circumflex just distal to the stent, which continued to be patent. Right coronary artery was totally occluded in its midportion, filled retrograde from the left. He was seen by Dr. Valadez in consultation for possible CABG. However, Mr. Reyes developed quite a large hematoma and was observed overnight. Ultrasound on the following day revealed no evidence of pseudoaneurysm. Dr. Valadez felt it would be best to wait until he could recover from his right femoral hematoma. Mr. Reyes after he went home was not sleeping well. He then was readmitted on November 25, 2019. The previous night at 11 p.m., he began to develop chest pressure and also had shortness of breath. He denied any palpitations, just the chest pressure. He went to the emergency room in [facility], was found to be in atrial fibrillation with very rapid ventricular response. He had a heart rate up to 214 per minute. He was given Lovenox, started on Cardizem and amiodarone drip and transferred. After his heart rate had slowed to the 130 range, he was asymptomatic. On the intravenous Cardizem and intravenous amiodarone, he converted back to sinus rhythm. He was transitioned to p.o. amiodarone and started on Eliquis. He was readmitted on December 15, 2019 and underwent CABG x3 with ARANGO to the LAD , vein graft to the diagonal, and vein graft to the obtuse marginal. It was felt the right coronary artery is too small for bypass. He also underwent ligation of the left atrial appendage. He did well postoperatively without any significant recurrence of atrial fibrillation. Mr. Reyes has been undergoing outpatient cardiac rehab. He apparently went for his usual exercise time and was found to have a rapid heart rate in the 120s. Our office was called and recommended he go to the emergency room. He has been found to be in atrial flutter and has been started on intravenous Cardizem. Mr. Reyes denies any palpitations, shortness of breath, chest discomfort, PND, or orthopnea. PAST MEDICAL HISTORY: Diabetes, elevated liver function tests in the past, obesity, obstructive sleep apnea, hypertension, and hypercholesterolemia. MEDICATIONS: 1. Eliquis 5 mg b.i.d. 2. Amiodarone 200 mg daily. 3. Aspirin 81 daily. 4. Atorvastatin 40 at bedtime. 5. Fish oil. 6. Glipizide 5 mg b.i.d. 7. [place] p.r.n. 8. Metformin 1000 mg b.i.d. 9. Metoprolol ER 100 mg daily. 10. Nitroglycerin p.r.n. 11. Omeprazole 20 mg daily. 12. Ramipril 10 mg daily. 13. Vitamin B. 14. Vitamin E. ALLERGIES: CODEINE AND DEMEROL. OPERATIONS: CABG with left atrial appendage ligation, laparoscopic cholecystectomy, neck surgery, and back surgery. SOCIAL HISTORY: He smoked in the past. He occasionally drinks alcohol. REVIEW OF SYSTEMS: A 10-point review of systems is otherwise unremarkable. PHYSICAL EXAMINATION: VITAL SIGNS: Blood pressure 108/72 and pulse 97. HEENT: PERRL. NECK: Supple. CHEST: Clear. CARDIAC: S1 and S2 normal without any S3, S4, or murmurs. ABDOMEN: Normal bowel sounds without tenderness or organomegaly. The abdomen is obese. EXTREMITIES: Revealed no clubbing, cyanosis, or edema. NEUROLOGIC: Grossly intact. SKIN: Warm and dry. LABORATORY DATA: EKG revealed atrial flutter with occasional PVC. Hemoglobin 13.8, hematocrit 39.6, white count 6800, and platelets 239,000. Sodium 137, potassium 3.9, chloride 105, carbon dioxide 23, BUN 11, and creatinine 0.79. TSH is normal. IMPRESSION: 1. Atrial flutter with 2:1 block. 2. Paroxysmal atrial fibrillation, which occurred after cardiac catheterization. This has been suppressed with amiodarone. On November 22, 2019, he was on intravenous Cardizem, intravenous digoxin, and IV amiodarone and converted to sinus rhythm. 3. Status post coronary artery bypass grafting x3 with left atrial appendage ligation. 4. History of stent placement in the proximal circumflex in 1999 in [place]. 5. Right femoral artery hematoma post catheterization. This is essentially resolved. 6. Hypercholesterolemia under good control. 7. Diabetes mellitus. 8. Hypertension. 9. Former smoker. 10. Obstructive sleep apnea on continuous positive airway pressure. 11. Obesity. PLAN: Mr. Reyes will be continued on his current medications. Electrophysiology consultation will be obtained for possible radiofrequency ablation of the atrial flutter. Also during this hospitalization, consideration should be given to transesophageal echo to assess the closure of the left atrial appendage, which was ligated at the time of surgery. Job ID: [id number] [facility] CENTERArmand
[2020-01-13 09:37] LABS: Calc. Creatinine Clearance 130 mL/min (70-130); Estimated GFR-MDRD Greater than 90
[2020-01-13] MEDS: Aspirin 81 mg Enteric Coated Tablet PO SCH (10:07)
[2020-01-13] MEDS: Amiodarone 200 MG TAB PO SCH (10:08)
[2020-01-13] MEDS: Ramipril 5 MG CAP PO SCH (10:17)
[2020-01-13] MEDS: Stress 600 With Zinc 1 TAB PO SCH (10:18)
[2020-01-13] MEDS ORDERED: PROPOFOL 200 MG/20 ML VIAL ONE (11:32)
--- NOTE | 2020-01-13 12:53 | PDOC.HOSPP ---
- Subjective Encounter Date: 01/13/20 Encounter Time: 09:30 Subjective: no sob or palp is ambulating in room - Objective Vital Signs & Weight: Vital Signs (12 hours) Temp Pulse Resp BP BP BP Pulse Ox 01/13/20 10:17 120/74 01/13/20 07:51 97.8 F 121 H 16 142/87 H 98 01/13/20 05:10 97.7 F 104 H 16 115/79 93 L Weight Weight 236 lb 11.2 oz I&O: 01/12/20 01/13/20 01/14/20 06:59 06:59 06:59 Intake Total 1445 Output Total 2700 Balance -1255 Result Diagrams: 01/12/20 06:39 01/13/20 08:56 Additional Labs: Accuchecks 01/13/20 01/13/20 01/12/20 10:54 05:29 19:34 POC Glucose 168 H 163 H 115 H 01/12/20 16:42 POC Glucose 211 H Hospitalist ROS - Medication Medications: Active Medications Generic Name Dose Route Start Last Admin Trade Name Freq PRN Reason Stop Dose Admin Acetaminophen 650 mg 01/11/20 17:56 01/12/20 21:54 Tylenol PO 650 mg Q4H PRN Administration Headache/Fever/Mild Pain (1-3) Amiodarone HCl 200 mg 01/12/20 09:00 01/13/20 10:08 Cordarone PO 200 mg DAILY PARVEZ Administration Apixaban 5 mg 01/11/20 21:00 01/12/20 21:50 Eliquis PO 5 mg BID PARVEZ Administration Aspirin 81 mg 01/12/20 09:00 01/13/20 10:07 Ecotrin PO 81 mg DAILY PARVEZ Administration Atorvastatin Calcium 40 mg 01/11/20 21:00 01/12/20 21:50 Lipitor PO 40 mg HS PARVEZ Administration Fish Oil 2,000 mg 01/11/20 21:00 01/12/20 21:49 Fish Oil PO 2,000 mg BID PARVEZ Administration Diltiazem HCl 125 mg/ Sodium 125 mls @ 15 mls/hr 01/11/20 15:00 01/13/20 09: 57 Chloride IVPB 125 mls INF PARVEZ Administration 15 MG/HR Metoprolol Succinate 50 mg 01/11/20 21:00 01/13/20 10:08 Toprol Xl PO 50 mg BID PARVEZ Administration Multivitamins/Zinc 1 tab 01/12/20 09:00 01/13/20 10:18 Stress 600 With Zinc PO 1 tab DAILY PARVEZ Administration Pantoprazole Sodium 40 mg 01/12/20 09:00 01/13/20 10:08 Protonix PO 40 mg DAILY PARVEZ Administration Ramipril 10 mg 01/12/20 09:00 01/13/20 10:17 Altace PO 10 mg DAILY PARVEZ Administration - Exam General Appearance: awake alert Eye: PERRL, anicteric sclera ENT: no oropharyngeal lesions, moist mucosa Neck: supple, no JVD Heart: no murmur, irregular Respiratory: no wheezes, no rales Respiratory - other findings: decreased air entry left infrascapular area Gastrointestinal: soft, non-tender, non-distended, normal bowel sounds Extremities: no cyanosis, no edema Neurological: cranial nerve grossly intact, no focal deficits Psychiatric: normal affect, A&O x 3 Hosp A/P (1) Atrial flutter Code(s): I48.92 - UNSPECIFIED ATRIAL FLUTTER Status: Acute (2) Atrial fibrillation with RVR Code(s): I48.91 - UNSPECIFIED ATRIAL FIBRILLATION Status: Acute (3) Dyslipidemia Code(s): E78.5 - HYPERLIPIDEMIA, UNSPECIFIED Status: Chronic (4) S/P CABG x 3 Code(s): Z95.1 - PRESENCE OF AORTOCORONARY BYPASS GRAFT Status: Acute (5) CAD (coronary artery disease) Code(s): I25.10 - ATHSCL HEART DISEASE OF [place] CORONARY ARTERY W/O ANG PCTRS Status: Chronic Qualifiers: Coronary Disease-Associated Artery/Lesion type: bypass graft [place] vs. transplanted heart: [place] heart Associated angina: without angina Qualified Code(s): I25.810 - Atherosclerosis of coronary artery bypass graft(s) without angina pectoris (6) Diabetes mellitus type 2 in nonobese Code(s): E11.9 - TYPE 2 DIABETES MELLITUS WITHOUT COMPLICATIONS Status: Chronic (7) Hypertension Code(s): I10 - ESSENTIAL (PRIMARY) HYPERTENSION Status: Chronic Qualifiers: Hypertension type: essential hypertension Qualified Code(s): I10 - Essential (primary) hypertension - Plan is on cardizem drip 15mg/hr on top of amiodarone oral, toprol xl 50mg bid continue eliquis, asp, lipitor, ramipril d/w , he will have ablation on , ISAIAS will be done today to see for left atrial appendage leak with inadequate closure? and to r/o thrombus. d/w , left effusion is less than before i.spirometry hemostable
[2020-01-13] MEDS ORDERED: PROPOFOL 20 ML ONE (16:20)
--- NOTE | 2020-01-13 16:25 | PDOC.EP ---
- Subjective Date: 01/13/20 Time: 08:00 Interval History: follow up for atrial flutter. Remains on cardizem 15mg/hr via IV. Feels well. NPO for ISAIAS today to assess ALYSE. No cardiac concerns or complaints. - Review of Systems Constitutional: denies: chills, fever, malaise, sweats, weakness, other Respiratory: denies: cough, dry, hemoptysis, pleuritic pain, shortness of breath , SOB with excertion, sputum, wheezing, other Cardiology: denies: chest pain, edema, heart racing, light headedness, paroxysmal noc. dyspnea, orthopnea, palpitations, passing out, pleuritic pain, pressure, swelling, other - Objective Allergies/Adverse Reactions: Allergies Allergy/AdvReac Type Severity Reaction Status Date / Time Opioids - Morphine Analogues Allergy Verified 11/11/19 11:25 Opioids-Meperidine and Allergy Verified 11/11/19 11:25 Related Opioids-Methadone and Related Allergy Verified 11/11/19 11:25 Current Medications Acetaminophen (Tylenol) 650 mg PO Q4H PRN PRN Reason: Headache/Fever/Mild Pain (1-3) Last Admin: 01/12/20 21:54 Dose: 650 mg Acetaminophen (Tylenol) 650 mg [place] Q4H PRN PRN Reason: Headache/Fever/Mild Pain (1-3) Hydrocodone Bitart/Acetaminophen ([place] 5/325) 1 tab PO Q4H PRN PRN Reason: Moderate Pain (4-6) Amiodarone HCl (Cordarone) 200 mg PO DAILY [facility] Last Admin: 01/13/20 10:08 Dose: 200 mg Apixaban (Eliquis) 5 mg PO BID [facility] Last Admin: 01/12/20 21:50 Dose: 5 mg Aspirin (Ecotrin) 81 mg PO DAILY [facility] Last Admin: 01/13/20 10:07 Dose: 81 mg Atorvastatin Calcium (Lipitor) 40 mg PO HS [facility] Last Admin: 01/12/20 21:50 Dose: 40 mg Dextrose/Water (Dextrose 50%) 25 gm SLOW IVP PRN PRN PRN Reason: Hypoglycemia Fish Oil (Fish Oil) 2,000 mg PO BID [facility] Last Admin: 01/12/20 21:49 Dose: 2,000 mg Glucagon (Glucagon) 1 mg IM PRN PRN PRN Reason: Hypoglycemia Diltiazem HCl 125 mg/ Sodium (Chloride) 125 mls @ 15 mls/hr IVPB INF [facility] Last Admin: 01/13/20 09:57 Dose: 125 mls Dextrose/Water (D5w) 1,000 mls @ 0 mls/hr IV .Q0M PRN PRN Reason: Hypoglycemia Insulin Human Lispro (Humalog) 0 units SC .MILD SLIDING SCALE PRN PRN Reason: Mild Correctional Scale Insulin Human Lispro (Humalog) 0 units SC .BEDTIME SLIDING SC PRN PRN Reason: Bedtime Correctional Scale Insulin Human Regular (Humulin R) 0 units SC .BEDTIME SLIDING SC PRN PRN Reason: Bedtime Correctional Scale Metoprolol Succinate (Toprol Xl) 50 mg PO BID [facility] Last Admin: 01/13/20 10:08 Dose: 50 mg Multivitamins/Zinc (Stress 600 With Zinc) 1 tab PO DAILY [facility] Last Admin: 01/13/20 10:18 Dose: 1 tab Nitroglycerin (Nitrostat) 0.4 mg SL Q5MIN PRN PRN Reason: Chest Pain Pantoprazole Sodium (Protonix) 40 mg PO DAILY [facility] Last Admin: 01/13/20 10:08 Dose: 40 mg Ramipril (Altace) 10 mg PO DAILY [facility] Last Admin: 01/13/20 10:17 Dose: 10 mg Sodium Chloride (Flush - Normal Saline) 10 ml IVF Q12H PRN PRN Reason: Saline Flush Sodium Chloride (Flush - Normal Saline) 10 ml IVF PRN PRN PRN Reason: Saline Flush Vital Signs & Weight: Vital Signs Temp Pulse Resp BP BP BP Pulse Ox 01/13/20 12:00 97.2 F L 118 H 18 103/64 96 01/13/20 10:17 120/74 01/13/20 08:00 97 01/13/20 07:51 97.8 F 121 H 16 142/87 H 98 01/13/20 05:10 97.7 F 104 H 16 115/79 93 L Weight 236 lb 11.2 oz I/O: I/O 01/12/20 01/13/20 01/14/20 06:59 06:59 06:59 Intake Total 1445 Output Total 2700 Balance -1255 - Physical Exam General: alert & oriented x3, appears well, no apparent distress, speech clear, affect appropriate HEENT: mucus membranes moist, normocephaly Neck: supple neck, midline trachea, no JVD/HJR, no masses, no bruit, no lymphadenopathy, no thromegaly Cardiology: no murmur, irregularly irregular, tachycardia Lungs: clear to auscultation, normal breath sounds, no wheeze, rales, rhonchi Neurology: cranial nerve 2-12 intact, grossly intact, sensory function intact, no lateralizing findings Abdomen: unremarkable, active bowel sounds - Labs Result Diagrams: 01/12/20 06:39 01/13/20 08:56 - EKG Interpretation EKG Method: Telemetry EKG shows: Typical atrial flutter - Assessment/Plan Assessment/Plan: 1. Recurrent atrial arrhythmias. a. History of atrial fibrillation, noted in 10/2019 post CABG b. Amiodarone suppression after bypass surgery. c. Recurrence of sustained atrial flutter on amiodarone 1 month post bypass surgery and on current admission with rapid ventricular rates. 2. Three-vessel coronary artery disease with mildly impaired LV systolic function on left heart catheterization on 11/22/2019. a. Status post CABG on by Dr. Valadez with ARANGO to LAD, SVG to diagonal and obtuse marginal, and also the patient had left atrial appendage ligation as part of the surgery. 3. Type 2 diabetes. 4. Hypertension. NPO tomorrow for EPS with flutter ablation. Likely CTI dependent given the regularity of the rhythm and morphology but could be atypical. Having ISAIAS performed today to assess ALYSE ligation effectiveness and need for OAC ongoing. RBA were discussed regarding EPS/ ablation. All questions answered. Will obtain consent. Hold OAC in AM.
--- NOTE | 2020-01-13 16:51 | EKG ---
Test Reason : Blood Pressure : / mmHG Vent. Rate : 123 BPM Atrial Rate : 246 BPM P-R Int : 000 ms QRS Dur : 086 ms QT Int : 278 ms P-R-T Axes : 090 -32 133 degrees QTc Int : 398 ms Atrial flutter with variable A-V block with premature ventricular or aberrantly conducted complexes Left axis deviation Inferior infarct , age undetermined cannot be excluded Abnormal ECG Confirmed by ZHAO QUINN ([id number]) on 01/13/2020 4:51:19 PM Referred By: STAR Confirmed By:ZHAO QUINN
[2020-01-13] MEDS: Apixaban 5 MG TAB PO SCH ×2 (18:05→20:46)
[2020-01-13] MEDS: Fish Oil 1,000 MG CAP PO SCH ×2 (18:06→20:46)
[2020-01-13] MEDS: Acetaminophen 325 MG TAB PO PRN ×2 (18:14→23:27)
[2020-01-13] MEDS: Atorvastatin Calcium 40 MG TAB PO SCH (20:46)
[2020-01-14 04:36] LABS: #Eosinphils 0.5 thou/uL (0.0-0.7); #Lymphocytes 1.5 thou/uL (1.20-3.40); #Monocytes 0.6 thou/uL (0.11-0.59); #Neutrophils 4.6 thou/uL (1.40-6.50); %Basophils 0.5 % (0.0-1.0); %Lymphocytes 20.7 % (21.0-51.0); %Monocytes 8.6 % (0.0-10.0); %Neutrophils 63.2 % (42.0-75.0); Mean Corpuscular HGB CONC 33.7 g/dL (32.0-36.0); Mean Corpuscular Volume 94.8 fL (78.0-98.0); Mean Platelet Volume 8.9 fL (7.4-10.4); Platelet Count 230 thou/uL (130-400); RBC Distribution Width 12.5 % (11.5-14.5); Red Blood Cell (RBC) Count 4.06 mill/uL (4.70-6.10); White Blood Cell (WBC) Count 7.2 thou/uL (4.8-10.8)
[2020-01-14 05:01] LABS: Anion Gap 10 mmol/L (10-20); BUN (Urea Nitrogen) 12 mg/dL (8.4-25.7); Calc. Creatinine Clearance 124 mL/min (70-130); Calcium 9.1 mg/dL (7.8-10.44); Carbon Dioxide 24 mmol/L (23-31); Chloride 106 mmol/L (98-107); Estimated GFR-MDRD Greater than 90; Glucose 145 mg/dL (83-110); Potassium 3.9 mmol/L (3.5-5.1); Sodium 136 mmol/L (136-145)
[2020-01-14] MEDS: Acetaminophen 325 MG TAB PO PRN ×2 (08:49→20:59)
--- NOTE | 2020-01-14 11:33 | OP ---
DATE OF PROCEDURE: 01/13/2020 PROCEDURE PERFORMED: Transesophageal echocardiogram. INDICATIONS FOR PROCEDURE: A 74-year-old gentleman with paroxysmal atrial fibrillation. DESCRIPTION OF PROCEDURE: The patient was taken to the PACU. The patient was sedated by Anesthesiology. A transesophageal probe was placed into the distal esophagus and stomach. Echocardiographic images were obtained. The transesophageal probe was removed. FINDINGS: 1. Normal left ventricular systolic function. 2. Left atrial enlargement. 3. Normal mitral and aortic valves. 4. Moderate mitral regurgitation. 5. Mild tricuspid regurgitation. 6. There is a small 1 mm leak noted in the closed left atrial appendage. 7. Atherosclerotic debris in the descending aorta. IMPRESSION: Small less than 1 mm leak noted in closed sutured left atrial appendage. Job ID: [id number]
[2020-01-14] MEDS ORDERED: Fentanyl 100 MCG/2 ML VIAL ONE (12:27)
[2020-01-14] MEDS ORDERED: Midazolam HCl 2 mg/2 ml Vial ONE (12:27)
[2020-01-14] MEDS ORDERED: Ketamine 50 MG/ML (10ML VIAL) ONE (12:28)
[2020-01-14] MEDS ORDERED: Propofol 500 MG/50 ML VIAL ONE (12:28)
[2020-01-14] MEDS ORDERED: Lidocaine 1% (PF) 30 ML VIAL ONE (12:41)
[2020-01-14] MEDS ORDERED: Heparin (Artline) 1,000 ML ONE (12:41)
[2020-01-14] MEDS ORDERED: Phenylephrine HCL 10 MG/ML VIAL ONE (13:04)
[2020-01-14] MEDS ORDERED: PHENYLEPHRINE-NS 100 MCG/ML 10 ML SYRINGE ONE (13:18)
[2020-01-14] MEDS ORDERED: PROPOFOL 200 MG/20 ML VIAL ONE (13:18)
[2020-01-14] MEDS ORDERED: DOPamine 400 MG/D5W 250 ML 250 ML ONE (13:32)
--- NOTE | 2020-01-14 15:25 | OP ---
DATE OF PROCEDURE: 01/14/2020 PROCEDURE PERFORMED: Electrophysiology study and radiofrequency ablation REASON FOR PROCEDURE: Mr. Goins is a pleasant 74-year-old man with a history of coronary artery bypass grafting surgery about a month ago. He also had pre-existing atrial fibrillation and was on amiodarone throughout the procedure, but amiodarone was decreased to 100 mg a couple of weeks ago. Now, he is returning with the typical isthmus dependent atrial flutter. The rate control is difficulty as he had been anticoagulated. ISAIAS prior to the procedure on the preceding day demonstrated no intracardiac clots and the surgical ligation with incomplete still present. He is here for radiofrequency ablation of the atrial flutter. DESCRIPTION OF PROCEDURE: The patient received deep sedation by anesthesia specialist. After adequate level of sedation achieved, the right femoral vein was prepped, draped, and anesthetized using subcutaneous lidocaine. Under ultrasound guidance, the femoral vein was cannulated x2. Two 8-[place] short sheaths were introduced, through which a ThermoCool SFST ablation and mapping catheter as well as a decapolar pace mapping catheter was advanced to the right atrium, right ventricle, His bundle, and CS positions. Pacing mapping and recording were performed at each location, including pacing left atrium from the CS. At baseline, typical isthmus dependent flutter was noted with cavotricuspid isthmus pacing, entering the tachycardia and the post-pacing interval was the shortest compared to other pacing sites, suggestive of cavotricuspid isthmus dependence. Following that, full 3D map of the right atrium, His bundle, CS, and isthmus area was obtained. Radiofrequency ablation was delivered at the cavotricuspid isthmus. A total of 3 lesions at 3 minutes and 8 seconds. The atrial flutter terminated during the ablation, and proximal CS pacing showed prolongation of transisthmus times up to 170 milliseconds with isthmus block was suggested of longest transisthmus time adjacent to the ablation line. At this point, basic EP study was performed with the following findings. Baseline rhythm at this point was sinus rhythm. RR 922, MN 172, QRS 69, QT 414, and HV 55 milliseconds. Sinus node recovery time is 1334, corrected is 412 milliseconds. The AV Wenckebach cycle length was 410. The retrograde Wenckebach cycle length was 560 milliseconds. AV partha ERP was measured at 600/280 milliseconds. Concentric retrograde VA conduction seen. No dual AV partha physiology was noted. Burst atrial pacing was attempted on and off dopamine, but we did not reinduce any atrial arrhythmias. The dopamine was administered at 10 mcg. The patient's isthmus again checked and isthmus block was again demonstrated any reconnection and re-ablated. At the end of the case, the cardiac silhouette did not change. The patient tolerated the procedure well. The catheter was removed from the body and the catheter sites were closed with Vascade closure device and manual pressure. CONCLUSION: 1. Typical isthmus-dependent atrial flutter at baseline. 2. Cavotricuspid isthmus ablation eliminated atrial flutter and re-inducibility. 3. Cavotricuspid isthmus block demonstrated. 4. Borderline sinus partha, but normal AV partha and His-Purkinje function with HV interval about 55 milliseconds. 5. No evidence of accessory pathway or dual AV partha physiology present. 6. No inducible arrhythmias in the end of the case while the patient is on chronic p.o. amiodarone maintenance therapy. PLAN: At this point, we will continue monitoring the patient, consider weaning amiodarone long-term to assess recurrence of atrial fibrillation and continue oral anticoagulation as well. Should atrial fibrillation recur, consideration for pulmonary venous isolation procedure could be made. Also, long-term, the left atrial appendage closure is a consideration. For now, continue oral anticoagulation. Job ID: [id number]
--- NOTE | 2020-01-14 15:53 | PDOC.HOSPP ---
- Subjective Subjective: Seen and examined this a.m. on the medical unit with telemetry. He is planned for electrophysiology study this afternoon. Time was given for questions, all answered in detail. Breathing comfortably on room air. Denies pain. Denies palpitations. - Objective Vital Signs & Weight: Vital Signs (12 hours) Temp Pulse Resp BP BP Pulse Ox 01/14/20 12:30 116 H 112/68 01/14/20 07:35 98.6 F 116 H 20 140/79 95 01/14/20 07:30 95 01/14/20 04:00 98.6 F 119 H 20 109/67 97 Weight Weight 237 lb 11.2 oz I&O: 01/13/20 01/14/20 01/15/20 06:59 06:59 06:59 Intake Total 1445 930 Output Total 2700 300 Balance -1255 630 Result Diagrams: 01/14/20 03:52 01/14/20 03:52 Additional Labs: Accuchecks 01/14/20 01/14/20 01/13/20 10:51 05:35 20:29 POC Glucose 157 H 136 H 162 H Radiology Reviewed by me: Yes Hospitalist ROS - Review of Systems All other systems reviewed; all pertinent +/- noted in HPI/Subj - Medication Medications: Active Medications Generic Name Dose Route Start Last Admin Trade Name Freq PRN Reason Stop Dose Admin Acetaminophen 650 mg 01/11/20 17:56 01/14/20 08:49 Tylenol PO 650 mg Q4H PRN Administration Headache/Fever/Mild Pain (1-3) Amiodarone HCl 200 mg 01/12/20 09:00 01/13/20 10:08 Cordarone PO 200 mg DAILY PARVEZ Administration Apixaban 5 mg 01/11/20 21:00 01/13/20 20:46 Eliquis PO 5 mg BID PARVEZ Administration Aspirin 81 mg 01/12/20 09:00 01/13/20 10:07 Ecotrin PO 81 mg DAILY PARVEZ Administration Atorvastatin Calcium 40 mg 01/11/20 21:00 01/13/20 20:46 Lipitor PO 40 mg HS PARVEZ Administration Fish Oil 2,000 mg 01/11/20 21:00 01/13/20 20:46 Fish Oil PO 2,000 mg BID PARVEZ Administration Diltiazem HCl 125 mg/ Sodium 125 mls @ 15 mls/hr 01/11/20 15:00 01/13/20 19: 43 Chloride IVPB 125 mls INF PARVEZ Administration 15 MG/HR Metoprolol Succinate 50 mg 01/11/20 21:00 01/13/20 20:46 Toprol Xl PO 50 mg BID PARVEZ Administration Multivitamins/Zinc 1 tab 01/12/20 09:00 01/13/20 10:18 Stress 600 With Zinc PO 1 tab DAILY PARVEZ Administration Pantoprazole Sodium 40 mg 01/12/20 09:00 01/13/20 10:08 Protonix PO 40 mg DAILY PARVEZ Administration Ramipril 10 mg 01/12/20 09:00 01/13/20 10:17 Altace PO 10 mg DAILY PARVEZ Administration - Exam General Appearance: NAD, awake alert Eye: anicteric sclera ENT: normocephalic atraumatic, moist mucosa Neck: supple, symmetric, no lymphadenopathy Heart: no murmur, no gallops, no rubs, normal peripheral pulses, irregular Respiratory: CTAB, no wheezes, no rales, no ronchi, normal chest expansion, no tachypnea Gastrointestinal: soft, non-tender, no guarding, no rigidity Extremities: no edema Skin: no lesions, no rashes Neurological: cranial nerve grossly intact, no focal deficits Musculoskeletal: generalized weakness Psychiatric: normal affect, normal behavior, A&O x 3 Hosp A/P (1) Atrial fibrillation with RVR Code(s): I48.91 - UNSPECIFIED ATRIAL FIBRILLATION Status: Acute (2) Atrial flutter Code(s): I48.92 - UNSPECIFIED ATRIAL FLUTTER Status: Acute (3) S/P CABG x 3 Code(s): Z95.1 - PRESENCE OF AORTOCORONARY BYPASS GRAFT Status: Acute (4) Dyslipidemia Code(s): E78.5 - HYPERLIPIDEMIA, UNSPECIFIED Status: Chronic (5) Chest pain Code(s): R07.9 - CHEST PAIN, UNSPECIFIED Status: Acute (6) CAD (coronary artery disease) Code(s): I25.10 - ATHSCL HEART DISEASE OF [place] CORONARY ARTERY W/O ANG PCTRS Status: Chronic Qualifiers: Coronary Disease-Associated Artery/Lesion type: bypass graft [place] vs. transplanted heart: [place] heart Associated angina: without angina Qualified Code(s): I25.810 - Atherosclerosis of coronary artery bypass graft(s) without angina pectoris (7) Diabetes mellitus type 2 in nonobese Code(s): E11.9 - TYPE 2 DIABETES MELLITUS WITHOUT COMPLICATIONS Status: Chronic (8) Hypertension Code(s): I10 - ESSENTIAL (PRIMARY) HYPERTENSION Status: Chronic Qualifiers: Hypertension type: essential hypertension Qualified Code(s): I10 - Essential (primary) hypertension - Plan Plan: medical unit with telemetry EP water pollution specialist consultation, recommendations appreciated EP study on 01/14/2020 continue oral and coagulation cardiomyopathy regimen continue other home medications as able blood pressure control blood sugar control G.I. prophylaxis DVT prophylaxis
[2020-01-14] MEDS: Ramipril 5 MG CAP PO SCH (18:12)
[2020-01-14] MEDS: Fish Oil 1,000 MG CAP PO SCH ×2 (18:12→20:57)
[2020-01-14] MEDS: Aspirin 81 mg Enteric Coated Tablet PO SCH (18:12)
[2020-01-14] MEDS: Stress 600 With Zinc 1 TAB PO SCH (18:12)
[2020-01-14] MEDS: Atorvastatin Calcium 40 MG TAB PO SCH (20:57)
[2020-01-14] MEDS: Apixaban 5 MG TAB PO SCH (20:57)
[2020-01-15 08:21] VITALS: TEMP 98.7
[2020-01-15] MEDS: Amiodarone 200 MG TAB PO SCH (08:57)
[2020-01-15] MEDS: Fish Oil 1,000 MG CAP PO SCH (08:57)
[2020-01-15] MEDS: Ramipril 5 MG CAP PO SCH (08:57)
[2020-01-15] MEDS: Aspirin 81 mg Enteric Coated Tablet PO SCH (08:58)
[2020-01-15] MEDS: Apixaban 5 MG TAB PO SCH (08:58)
[2020-01-15] MEDS: Stress 600 With Zinc 1 TAB PO SCH (08:58)
[2020-01-15 09:00] VITALS: BP 120/74
--- NOTE | 2020-01-16 01:05 | DIS ---
DATE OF ADMISSION: 01/11/2020 DATE OF DISCHARGE: 01/15/2020 REASON FOR HOSPITALIZATION: Atrial flutter/atrial fibrillation. SIGNIFICANT FINDINGS: The patient was found to be in atrial flutter and required electrophysiology study. PROCEDURES PERFORMED AND TREATMENTS RENDERED: The patient was admitted to the medical unit with telemetry for close management. The patient was seen and evaluated by Cardiology and electrophysiology specialist, please see full consultation notes and progress notes for details. Cardiology recommending transesophageal echocardiogram, which was performed on 01/13/[address] Montiel-please see full operative report for details. The patient tolerated the procedure well without intraoperative complication. There was found to be a small 1 mm leak noted at the close left atrial appendage. The patient was recommended safe for proceeding with electrophysiology study. Please see full operative report from 01/14/[address] Ramirez. The patient tolerated electrophysiology study without complications. Dr. Ramirez's recommendations that we will continue oral anticoagulation, continue amiodarone, and we will evaluate the patient for other strategies both surgical and nonsurgical for correction of atrial fibrillation in the future in the outpatient clinic. The patient was recommended safe for discharge by all specialists on 01/15/2020 with close followup in the outpatient setting. CONDITION ON DISCHARGE: Stable. SPECIFIC INSTRUCTIONS FOR THE PATIENT/FAMILY: 1. The patient is recommended to take all cardiac medications as directed by elementary reading specialist. 2. The patient is recommended to follow up with Cardiology in the next 1 to 2 weeks. 3. The patient is recommended to follow up with ecological risk assessor in the next 4 to 6 weeks. 4. The patient is recommended to follow up with primary care physician in the next 5 to 7 days. 5. The patient is recommended to take all other medications as directed by primary care physician and specialists. 6. The patient is recommended to return to acute care hospital immediately if signs or symptoms return, worsen, or any other new symptoms occur. DISCHARGE MEDICATIONS: 1. Amiodarone 200 mg one tablet p.o. b.i.d. 2. Ramipril 10 mg one tablet p.o. daily. 3. Omeprazole 20 mg one tablet p.o. daily. 4. Nitroglycerin 0.4 mg one tablet p.o. q.5 minutes p.r.n. chest pain. 5. Glipizide 5 mg one tablet p.o. b.i.d. 6. Vitamin E 800 mg one tablet p.o. daily. 7. Vitamin B complex one capsule p.o. daily. 8. Aspirin 81 mg one tablet p.o. daily. 9. Eliquis 5 mg one tablet p.o. b.i.d. 10. Atorvastatin 40 mg one tablet p.o. at bedtime. 11. Fish oil 1200 mg two capsules p.o. b.i.d. 12. [place] 5/325 one tab p.o. q.4 hours p.r.n. pain, medication continued as home medication without refill prescription. 13. Metoprolol succinate 100 mg one tablet p.o. daily. 14. Metformin 1000 mg one tablet p.o. b.i.d. TIME SPENT: Greater than 38 minutes spent coordinating care and discharge process for this patient. Job ID: [id number]
--- NOTE | 2020-01-18 09:59 | EKG ---
Test Reason : POST-PROCEDURE Blood Pressure : / mmHG Vent. Rate : 076 BPM Atrial Rate : 076 BPM P-R Int : 256 ms QRS Dur : 100 ms QT Int : 420 ms P-R-T Axes : 124 -27 135 degrees QTc Int : 472 ms Unusual P axis, possible ectopic atrial rhythm Non-specific intra-ventricular conduction delay Cannot exclude Inferior infarct , age undetermined Nonspecific T wave abnormality Prolonged QT Abnormal ECG Confirmed by ZHAO QUINN ([id number]) on 01/18/2020 9:59:00 AM Referred By: CALE Confirmed By:ZHAO QUINN
== END 2020-01-15 11:29 | disposition home or self-care (01) | DRG 274 ==
LOC: ERS 09:02 → ERHOLD 15:10 → OBSVTOIN 17:56 → 2NO 18:40
PROVIDERS: ADMIT Emergency Medicine; ATTEND Internal Medicine
PROC: B246ZZ4 Ultrasonography of Right and Left Heart, Transesophageal (ICD-10-PCS; principal; 2020-01-13)
PROC: 02583ZZ Destruction of Conduction Mechanism, Percutaneous Approach (ICD-10-PCS; 2020-01-14)
PROC: 4A023FZ Measurement of Cardiac Rhythm, Percutaneous Approach (ICD-10-PCS; 2020-01-14)
PROC: 4A0234Z Measurement of Cardiac Electrical Activity, Percutaneous Approach (ICD-10-PCS; 2020-01-14)
PROC: 02K83ZZ Map Conduction Mechanism, Percutaneous Approach (ICD-10-PCS; 2020-01-14)
DX: I48.0 Paroxysmal atrial fibrillation (principal); I31.3 Pericardial effusion (noninflammatory); I97.630 Postprocedural hematoma of a circulatory system organ or structure following a cardiac catheterization; I25.810 Atherosclerosis of coronary artery bypass graft(s) without angina pectoris; Z95.1 Presence of aortocoronary bypass graft; E78.5 Hyperlipidemia, unspecified; I10 Essential (primary) hypertension; E11.9 Type 2 diabetes mellitus without complications; E83.42 Hypomagnesemia; K21.9 Gastro-esophageal reflux disease without esophagitis; Z88.8 Allergy status to other drugs, medicaments and biological substances; I48.92 Unspecified atrial flutter; G47.33 Obstructive sleep apnea (adult) (pediatric); E78.00 Pure hypercholesterolemia, unspecified; Z90.49 Acquired absence of other specified parts of digestive tract; Z87.891 Personal history of nicotine dependence; E66.9 Obesity, unspecified; Z68.34 Body mass index [BMI] 34.0-34.9, adult; Y83.8 Other surgical procedures as the cause of abnormal reaction of the patient, or of later complication, without mention of misadventure at the time of the procedure; I08.1 Rheumatic disorders of both mitral and tricuspid valves
CPT/HCPCS: 36415; 36416; 71045; 76942; 80048; 80053; 82565; 83735; 84443; 84484; 85025; 93005; 93010; 93312; 93613; 93621; 93623; 93653; 96361; 96365; 96366; 96367; 96375; 96376; C1730; C1732; C1769; J1265; J1644; J2001; J2250; J2370; J2704; J3010; J3370; J3475; J3490

== ENCOUNTER 2020-09-22 07:05 | Outpatient (CLI) | payer MEDICARE, OTHER ==
--- NOTE | 2020-09-22 09:06 | CT ---
EXAM: CTA of the chest HISTORY: Evaluate for left atrial appendage thrombus status post coil placement on 07/13/2020. COMPARISON: None TECHNIQUE: Multiple contiguous axial images were obtained a CTA of the chest with contrast per left a trial appendage protocol. Sagittal and coronal 3-D MIP reformats were performed. FINDINGS: HEART: The patient is status post CABG. Normal in size without focal cardiac abnormality. Metallic st reak artifact from an occlusive device is seen in the left atrial appendage. There is adequate opacification of the left atrium. No contrast is seen distal to this area of metallic artifact. PULMONARY ARTERIES: Normal in caliber without filling defects to suggest pulmonary emboli. MEDIASTINUM: No hilar or mediastinal lymphadenopathy. LUNGS: No focal infiltrates or masses. PLEURAL SPACE: No pleural effusion or pneumothorax. CHEST WALL SOFT TISSUES: Unremarkable VISUALIZED OSSEOUS STRUCTURES: Degenerative changes in the spine. There is a hemangioma in the T11 ve rtebral body. VISUALIZED SUBDIAPHRAGMATIC STRUCTURES: Status post cholecystectomy. IMPRESSION: Appropriate occlusion of left atrial appendage
[2020-09-22] MEDS ORDERED: Iopamidol-370 76% 500 ML 1 ML ONE (15:04)
== END 2020-09-22 07:06 | disposition home or self-care (01) ==
LOC: BICCT 07:05
PROVIDERS: ATTEND Internal Medicine Cardiovascular Disease
DX: I48.91 Unspecified atrial fibrillation (principal); R06.02 Shortness of breath
CPT/HCPCS: 71275; Q9967

== ENCOUNTER 2022-04-20 15:34 | Inpatient (IN) | payer MEDICARE ==
[2022-04-20] MEDS ORDERED: Senokot S 8.6-50 MG TAB PO PRN (18:13)
[2022-04-20] MEDS ORDERED: Amiodarone 150 MG, Admixture Fee 1 EACH in Dextrose 5% in Water 100 ML IVPB SCH (18:30)
[2022-04-20] MEDS ORDERED: Dextrose 5% in Water 1,000 ML IV PRN (18:34)
[2022-04-20] MEDS ORDERED: Dextrose 50% Abboject 50 ML SYRINGE SLOW IVP PRN (18:34)
[2022-04-20 19:22] VITALS: BMI 33.1
[2022-04-20] MEDS ORDERED: Electrolyte Replacement Protocol 1 EACH FS SCH (19:30)
[2022-04-20] MEDS: Amiodarone 450 MG in Dextrose 5% in Water 250 ML IVPB SCH (19:55)
[2022-04-20] MEDS ORDERED: Magnesium Sulfate In Water 4 GM in Premix Bag 1 BAG IVPB SCH (21:00)
[2022-04-20] MEDS ORDERED: metFORMIN XR 500 MG TAB PO SCH (21:00)
[2022-04-20 21:05] LABS: ALT (SGPT) 22 U/L (8-55); AST (SGOT) 14 U/L (5-34); Albumin 3.6 g/dL (3.4-4.8); Alkaline Phosphatase 64 U/L (40-110); Bilirubin, Direct 0.3 mg/dL (0.1-0.3); Bilirubin, Total 0.6 mg/dL (0.2-1.2); Protein, Total 5.9 g/dL (5.8-8.1)
[2022-04-20] MEDS: Enoxaparin Sodium 120 MG/0.8 ML SYRINGE SC SCH (21:24)
[2022-04-20] MEDS: Atorvastatin Calcium 40 MG TAB PO SCH (21:24)
[2022-04-20] MEDS: Ascorbic Acid 500 mg Chewable Tablet PO SCH (21:25)
[2022-04-20] MEDS: Famotidine 20 MG TAB PO SCH (21:25)
[2022-04-20] MEDS: guaiFENesin ER 600 MG TAB PO SCH (21:25)
[2022-04-20] MEDS: Acetaminophen 325 MG TAB PO PRN (21:43)
[2022-04-20] MEDS: Insulin Regular 300 UNITS/3 ML VIAL SC PRN (22:14)
[2022-04-21] MEDS: Acetaminophen 325 MG TAB PO PRN (02:51)
[2022-04-21] MEDS: Benzonatate 100 MG CAP PO PRN ×3 (02:51→21:34)
[2022-04-21] MEDS: Amiodarone 450 MG in Dextrose 5% in Water 250 ML IVPB SCH (02:59)
[2022-04-21 05:42] LABS: Band 3 % (5-11); Hemoglobin 13.3 g/dL (14.0-18.0); Lymphocytes 10 % (21-51); MDiff Complete? YES; Mean Corpuscular HGB CONC 33.3 g/dL (32.0-36.0); Mean Corpuscular Hemoglobin 31.8 pg (27.0-31.0); Mean Corpuscular Volume 95.5 fL (78.0-98.0); Mean Platelet Volume 9.6 fL (7.4-10.4); Monocytes 12 % (0-10); Neutrophil 73 % (42-75); Platelet Count 131 thou/uL (130-400); Platelet Morphology Comment Appears Adequate; RBC Morphology Normal; Reactive Lymphocytes 1 % (0-10); Red Blood Cell (RBC) Count 4.16 mill/uL (4.70-6.10); White Blood Cell (WBC) Count 7.5 thou/uL (4.8-10.8)
[2022-04-21 05:44] LABS: ALT (SGPT) 20 U/L (8-55); AST (SGOT) 13 U/L (5-34); Albumin 3.5 g/dL (3.4-4.8); Alkaline Phosphatase 61 U/L (40-110); Anion Gap 11 mmol/L (10-20); BUN (Urea Nitrogen) 13 mg/dL (8.4-25.7); Bilirubin, Total 0.9 mg/dL (0.2-1.2); Calc. Creatinine Clearance 123 mL/min (70-130); Calcium 8.4 mg/dL (7.8-10.44); Carbon Dioxide 23 mmol/L (23-31); Chloride 104 mmol/L (98-107); Globulin 2.3 g/dL (2.4-3.5); Glucose 234 mg/dL (83-110); Magnesium 1.8 mg/dL (1.6-2.6); Potassium 3.8 mmol/L (3.5-5.1); Protein, Total 5.8 g/dL (5.8-8.1); Sodium 134 mmol/L (136-145)
[2022-04-21] MEDS: Insulin Regular 300 UNITS/3 ML VIAL SC PRN ×2 (06:26→21:32)
[2022-04-21] MEDS ORDERED: Magnesium 2 GM/50 ML(in water) 2 GM in Premix Bag 1 BAG IVPB SCH (08:00)
[2022-04-21] MEDS: Enoxaparin Sodium 120 MG/0.8 ML SYRINGE SC SCH ×2 (10:19→21:31)
[2022-04-21] MEDS: Ascorbic Acid 500 mg Chewable Tablet PO SCH ×2 (10:20→21:31)
[2022-04-21] MEDS: Aspirin 81 mg Enteric Coated Tablet PO SCH (10:20)
[2022-04-21] MEDS: Ramipril 5 MG CAP PO SCH (10:20)
[2022-04-21] MEDS: Zinc Sulfate 220 MG CAP PO SCH (10:21)
[2022-04-21] MEDS: guaiFENesin ER 600 MG TAB PO SCH ×2 (10:21→21:31)
[2022-04-21] MEDS: Famotidine 20 MG TAB PO SCH ×2 (10:28→21:31)
[2022-04-21] MEDS ORDERED: Digoxin 0.5 MG/2 ML AMP SLOW IVP SCH (15:15)
[2022-04-21] MEDS ORDERED: Iopamidol-370 76% 500 ML 1 ML ONE (16:31)
[2022-04-21] MEDS: Atorvastatin Calcium 40 MG TAB PO SCH (21:31)
[2022-04-21] MEDS ORDERED: Cepastat Lozenges 1 LOZ PO PRN (22:30)
[2022-04-22 04:55] LABS: #Eosinphils 0.2 thou/uL (0.0-0.7); #Lymphocytes 1.3 thou/uL (1.20-3.40); #Neutrophils 4.7 thou/uL (1.40-6.50); %Basophils 0.2 % (0.0-1.0); %Eosinophils 2.3 % (0.0-10.0); %Lymphocytes 18.1 % (21.0-51.0); %Monocytes 13.7 % (0.0-10.0); %Neutrophils 65.7 % (42.0-75.0); Hemoglobin 13.2 g/dL (14.0-18.0); Mean Corpuscular HGB CONC 34.6 g/dL (32.0-36.0); Mean Corpuscular Hemoglobin 33.1 pg (27.0-31.0); Mean Corpuscular Volume 95.7 fL (78.0-98.0); Mean Platelet Volume 9.6 fL (7.4-10.4); Platelet Count 125 thou/uL (130-400); RBC Distribution Width 11.8 % (11.5-14.5); Red Blood Cell (RBC) Count 3.98 mill/uL (4.70-6.10); White Blood Cell (WBC) Count 7.2 thou/uL (4.8-10.8)
[2022-04-22 05:17] LABS: Anion Gap 13 mmol/L (10-20); BUN (Urea Nitrogen) 14 mg/dL (8.4-25.7); Calc. Creatinine Clearance 120 mL/min (70-130); Calcium 8.5 mg/dL (7.8-10.44); Carbon Dioxide 21 mmol/L (23-31); Chloride 104 mmol/L (98-107); Glucose 251 mg/dL (83-110); Magnesium 1.9 mg/dL (1.6-2.6); Potassium 3.7 mmol/L (3.5-5.1); Sodium 134 mmol/L (136-145)
[2022-04-22] MEDS: Acetaminophen 325 MG TAB PO PRN (05:27)
[2022-04-22] MEDS: HumaLOG 300 UNITS/3 ML VIAL SC PRN (05:42)
[2022-04-22] MEDS ORDERED: Magnesium 2 GM/50 ML(in water) 2 GM in Premix Bag 1 BAG IVPB SCH (08:00)
[2022-04-22] MEDS: Famotidine 20 MG TAB PO SCH ×2 (09:37→20:16)
[2022-04-22] MEDS: guaiFENesin ER 600 MG TAB PO SCH ×2 (09:38→20:17)
[2022-04-22] MEDS: Ramipril 5 MG CAP PO SCH (09:38)
[2022-04-22] MEDS: Enoxaparin Sodium 120 MG/0.8 ML SYRINGE SC SCH ×2 (09:38→20:17)
[2022-04-22] MEDS: Aspirin 81 mg Enteric Coated Tablet PO SCH (09:38)
[2022-04-22] MEDS: Ascorbic Acid 500 mg Chewable Tablet PO SCH ×2 (09:38→20:16)
[2022-04-22] MEDS: Zinc Sulfate 220 MG CAP PO SCH (09:38)
[2022-04-22] MEDS ORDERED: Digoxin 0.5 MG/2 ML AMP SLOW IVP SCH ×2 (10:00→17:00)
[2022-04-22] MEDS: Amiodarone 450 MG in Dextrose 5% in Water 250 ML IVPB SCH (11:15)
[2022-04-22] MEDS ORDERED: Metoprolol Tartrate 5 MG/5 ML VIAL IVP SCH ×2 (12:39→18:15)
[2022-04-22] MEDS ORDERED: HYDROcodone/Acetaminophen 5/325 mg Tablet PO PRN (13:03)
[2022-04-22] MEDS: Insulin Regular 300 UNITS/3 ML VIAL SC PRN ×2 (13:17→18:36)
[2022-04-22] MEDS: glipiZIDE 10 MG TAB PO SCH (16:23)
[2022-04-22] MEDS: Atorvastatin Calcium 40 MG TAB PO SCH (20:16)
[2022-04-22] MEDS: Cholecalciferol 1,000 UNITS (25 MCG) TAB PO SCH (20:17)
[2022-04-22] MEDS: Diltiazem HCl 125 MG in Premix Bag 1 BAG IVPB SCH (20:52)
[2022-04-23 05:16] LABS: Digoxin 1.19 ng/mL (0.8-2.0)
[2022-04-23 05:26] LABS: Anion Gap 14 mmol/L (10-20); BUN (Urea Nitrogen) 15 mg/dL (8.4-25.7); Calc. Creatinine Clearance 120 mL/min (70-130); Calcium 8.6 mg/dL (7.8-10.44); Carbon Dioxide 21 mmol/L (23-31); Chloride 102 mmol/L (98-107); Glucose 200 mg/dL (83-110); Potassium 3.8 mmol/L (3.5-5.1); Sodium 133 mmol/L (136-145)
[2022-04-23] MEDS: Insulin Regular 300 UNITS/3 ML VIAL SC PRN ×3 (06:19→20:58)
[2022-04-23] MEDS: Amiodarone 450 MG in Dextrose 5% in Water 250 ML IVPB SCH (08:01)
[2022-04-23] MEDS: Enoxaparin Sodium 120 MG/0.8 ML SYRINGE SC SCH ×3 (08:22→20:57)
[2022-04-23] MEDS: Aspirin 81 mg Enteric Coated Tablet PO SCH (08:23)
[2022-04-23] MEDS: Ramipril 5 MG CAP PO SCH (08:23)
[2022-04-23] MEDS: Ascorbic Acid 500 mg Chewable Tablet PO SCH ×2 (08:23→20:55)
[2022-04-23] MEDS: Famotidine 20 MG TAB PO SCH ×2 (08:23→20:54)
[2022-04-23] MEDS: Zinc Sulfate 220 MG CAP PO SCH (08:23)
[2022-04-23] MEDS: glipiZIDE 10 MG TAB PO SCH ×2 (08:23→15:55)
[2022-04-23] MEDS: guaiFENesin ER 600 MG TAB PO SCH ×2 (08:23→20:55)
[2022-04-23] MEDS: Acetaminophen 325 MG TAB PO PRN (20:54)
[2022-04-23] MEDS: Amiodarone 200 MG TAB PO SCH (20:54)
[2022-04-23] MEDS: Atorvastatin Calcium 40 MG TAB PO SCH (20:55)
[2022-04-23] MEDS: Cholecalciferol 1,000 UNITS (25 MCG) TAB PO SCH (20:55)
[2022-04-24] MEDS: Diltiazem HCl 125 MG in Premix Bag 1 BAG IVPB SCH (04:58)
[2022-04-24 05:26] LABS: Anion Gap 13 mmol/L (10-20); BUN (Urea Nitrogen) 13 mg/dL (8.4-25.7); Calc. Creatinine Clearance 118 mL/min (70-130); Calcium 8.9 mg/dL (7.8-10.44); Carbon Dioxide 23 mmol/L (23-31); Chloride 103 mmol/L (98-107); Cholesterol 109 mg/dl (< 200 Desired); Glucose 219 mg/dL (83-110); HDL Cholesterol 36 mg/dL (>60 Neg Risk); LDL Cholesterol, Calculated 51 mg/dL; Potassium 3.6 mmol/L (3.5-5.1); Sodium 135 mmol/L (136-145); Triglycerides 111 mg/dL (Less than 150)
[2022-04-24] MEDS: glipiZIDE 10 MG TAB PO SCH ×2 (07:51→17:21)
[2022-04-24] MEDS: Aspirin 81 mg Enteric Coated Tablet PO SCH (07:52)
[2022-04-24] MEDS: Amiodarone 200 MG TAB PO SCH ×2 (07:52→21:25)
[2022-04-24] MEDS: Ascorbic Acid 500 mg Chewable Tablet PO SCH ×2 (07:52→21:26)
[2022-04-24] MEDS: guaiFENesin ER 600 MG TAB PO SCH ×2 (07:53→21:26)
[2022-04-24] MEDS: Enoxaparin Sodium 120 MG/0.8 ML SYRINGE SC SCH (07:53)
[2022-04-24] MEDS: Famotidine 20 MG TAB PO SCH ×2 (07:53→21:26)
[2022-04-24] MEDS: Ramipril 5 MG CAP PO SCH (07:54)
[2022-04-24] MEDS ORDERED: PROPOFOL 20 ML ONE ×2 (09:05→14:03)
[2022-04-24] MEDS: Zinc Sulfate 220 MG CAP PO SCH (11:54)
[2022-04-24] MEDS ORDERED: Sodium Chloride 0.9% 1,000 ML IV SCH (13:30)
[2022-04-24] MEDS: Cephalexin 250 MG CAP PO SCH ×2 (17:21→21:25)
[2022-04-24] MEDS ORDERED: Cephalexin 250 MG CAP PO SCH (21:00)
[2022-04-24] MEDS: Cholecalciferol 1,000 UNITS (25 MCG) TAB PO SCH (21:26)
[2022-04-24] MEDS: Apixaban 5 MG TAB PO SCH (21:26)
[2022-04-24] MEDS: Atorvastatin Calcium 40 MG TAB PO SCH (21:26)
[2022-04-24] MEDS: Insulin Regular 300 UNITS/3 ML VIAL SC PRN (21:26)
[2022-04-25] MEDS ORDERED: Furosemide 20 MG/2 ML VIAL SLOW IVP SCH (06:00)
[2022-04-25] MEDS: HumaLOG 300 UNITS/3 ML VIAL SC PRN ×2 (06:01→11:07)
[2022-04-25] MEDS: Apixaban 5 MG TAB PO SCH (08:47)
[2022-04-25] MEDS: glipiZIDE 10 MG TAB PO SCH (08:47)
[2022-04-25] MEDS: Amiodarone 200 MG TAB PO SCH (08:47)
[2022-04-25] MEDS: Cephalexin 250 MG CAP PO SCH (08:48)
[2022-04-25] MEDS: Ascorbic Acid 500 mg Chewable Tablet PO SCH (08:48)
[2022-04-25] MEDS: Aspirin 81 mg Enteric Coated Tablet PO SCH (08:48)
[2022-04-25] MEDS: Famotidine 20 MG TAB PO SCH (08:49)
[2022-04-25] MEDS: Zinc Sulfate 220 MG CAP PO SCH (08:49)
[2022-04-25] MEDS: Ramipril 5 MG CAP PO SCH (08:49)
[2022-04-25] MEDS: guaiFENesin ER 600 MG TAB PO SCH (08:49)
[2022-04-25 10:41] VITALS: BP 154/71; TEMP 96.8
[2022-05-08] MEDS ORDERED: Amiodarone 200 MG TAB PO SCH (09:00)
[2022-05-22] MEDS ORDERED: Amiodarone 200 MG TAB PO SCH (09:00)
== END 2022-04-25 12:22 | disposition home or self-care (01) | DRG 308 ==
LOC: 2NO 17:18
PROVIDERS: ADMIT Internal Medicine; ATTEND Family Medicine
PROC: 8E0ZXY6 Isolation (ICD-10-PCS; principal; 2022-04-20)
PROC: 5A2204Z Restoration of Cardiac Rhythm, Single (ICD-10-PCS; 2022-04-24)
DX: I48.0 Paroxysmal atrial fibrillation (principal); U07.1 COVID-19; I25.810 Atherosclerosis of coronary artery bypass graft(s) without angina pectoris; I48.91 Unspecified atrial fibrillation; I25.10 Atherosclerotic heart disease of native coronary artery without angina pectoris; E11.9 Type 2 diabetes mellitus without complications; E78.5 Hyperlipidemia, unspecified; I10 Essential (primary) hypertension; I48.3 Typical atrial flutter; Z88.5 Allergy status to narcotic agent; Z79.82 Long term (current) use of aspirin; Z79.899 Other long term (current) drug therapy; I25.2 Old myocardial infarction
CPT/HCPCS: 36415; 36416; 71275; 80048; 80053; 80061; 80162; 82728; 83735; 84443; 85025; 92960; 93005; 93010; 93306; J0282; J1160; J1650; J1815; J1940; J2704; J3475; J7050; J7070; Q9967; U0003; U0005

== ENCOUNTER 2023-08-26 06:41 | Inpatient (IN) | payer MEDICARE ==
[2023-08-26] MEDS ORDERED: Metoprolol Tartrate 5 MG/5 ML VIAL ONE ×3 (07:00→08:01)
[2023-08-26 07:03] LABS: #Eosinphils 0.3 thou/uL (0.0-0.7); #Monocytes 0.7 thou/uL (0.11-0.59); #Neutrophils 7.5 thou/uL (1.40-6.50); %Basophils 0.4 % (0.0-1.0); %Eosinophils 2.6 % (0.0-10.0); %Lymphocytes 21.5 % (21.0-51.0); %Monocytes 6.7 % (0.0-10.0); %Neutrophils 68.5 % (42.0-75.0); Hematocrit 46.2 % (42.0-52.0); Hemoglobin 15.9 g/dL (14.0-18.0); Mean Corpuscular HGB CONC 34.4 g/dL (32.0-36.0); Mean Corpuscular Hemoglobin 31.9 pg (27.0-31.0); Mean Corpuscular Volume 92.6 fl (78.0-98.0); Mean Platelet Volume 11.5 fL (7.4-10.4); Platelet Count 188 10x3/uL (130-400); RBC Distribution Width 12.3 % (11.5-14.5); Red Blood Cell (RBC) Count 4.99 mill/uL (4.70-6.10); White Blood Cell (WBC) Count 10.9 10x3/uL (4.8-10.8)
[2023-08-26 07:35] LABS: ALT (SGPT) 31 U/L (8-55); AST (SGOT) 22 U/L (5-34); Albumin 4.4 g/dL (3.4-4.8); Alkaline Phosphatase 66 U/L (40-110); Anion Gap 17 mmol/L (10-20); BUN (Urea Nitrogen) 20 mg/dL (8.4-25.7); Bilirubin, Total 0.4 mg/dL (0.2-1.2); Calc. Creatinine Clearance 0 mL/min (70-130); Calcium 9.9 mg/dL (7.8-10.44); Carbon Dioxide 21 mmol/L (23-31); Chloride 103 mmol/L (98-107); Estimated GFR 66; Globulin 2.9 g/dL (2.4-3.5); Glucose 214 mg/dL (83-110); Lipase 11 U/L (8-78); Magnesium 1.2 mg/dL (1.6-2.6); Potassium 4.5 mmol/L (3.5-5.1); Protein, Total 7.3 g/dL (5.8-8.1); Sodium 136 mmol/L (136-145)
[2023-08-26] MEDS ORDERED: Aspirin Chewable 81 MG TAB ONE (08:07)
[2023-08-26] MEDS ORDERED: Magnesium 2 GM/50 ML BAG (IN WATER) ONE ×2 (08:07→09:17)
[2023-08-26] MEDS ORDERED: Digoxin 0.5 MG/2 ML AMP ONE (08:32)
[2023-08-26] MEDS ORDERED: Amiodarone 150 MG/3 ML VIAL ONE (09:13)
[2023-08-26] MEDS ORDERED: Amiodarone 150 MG, Admixture Fee 1 EACH in Dextrose 5% in Water 100 ML IVPB SCH (09:30)
[2023-08-26] MEDS ORDERED: Amiodarone 450 MG, Admixture Fee 1 EACH in Dextrose 5% in Water 250 ML IVPB SCH (09:30)
[2023-08-26 09:35] LABS: Phosphorus 3.7 mg/dL (2.3-4.7)
[2023-08-26] MEDS ORDERED: Apixaban 5 MG TAB PO SCH (09:45)
[2023-08-26 11:24] LABS: Troponin I 0.063 ng/mL (< 0.028)
[2023-08-26] MEDS ORDERED: Nitroglycerin 0.4 MG TAB (25 Tab Bottle) SL PRN (11:40)
[2023-08-26] MEDS ORDERED: Acetaminophen 325 MG TAB PO PRN (11:42)
[2023-08-26] MEDS ORDERED: Ondansetron ODT 4 MG TAB PO PRN (11:42)
[2023-08-26] MEDS ORDERED: Senokot S 8.6-50 MG TAB PO PRN (11:42)
[2023-08-26] MEDS ORDERED: Ondansetron PF 4 MG/2 ML Vial IVP PRN (11:42)
[2023-08-26] MEDS ORDERED: Glucagon 1 MG/ML KIT IM PRN (12:34)
[2023-08-26] MEDS ORDERED: Dextrose 5% in Water 1,000 ML IV PRN (12:34)
[2023-08-26] MEDS ORDERED: Dextrose 50% Abboject 50 ML SYRINGE SLOW IVP PRN (12:34)
[2023-08-26] MEDS ORDERED: Insulin Regular 300 UNITS/3 ML VIAL SC PRN (12:34)
[2023-08-26 12:50] VITALS: BMI 32.7
[2023-08-26 13:48] LABS: Troponin I 0.082 ng/mL (< 0.028)
[2023-08-26] MEDS ORDERED: FLU VACC QS2023(65UP)/MF59C/PF 60 MCG/0.5 ML SYRINGE IM ONE (15:00)
[2023-08-26] MEDS ORDERED: Atorvastatin Calcium 40 MG TAB PO SCH (21:00)
[2023-08-26] MEDS ORDERED: Famotidine 20 MG TAB PO SCH (21:00)
[2023-08-26] MEDS: Apixaban 5 MG TAB PO SCH (21:14)
[2023-08-26] MEDS: Metoprolol Tartrate 25 MG TAB PO SCH (21:15)
[2023-08-26] MEDS: Magnesium Oxide 400 MG TAB PO SCH (21:15)
[2023-08-26] MEDS: Insulin Regular 300 UNITS/3 ML VIAL SC PRN (21:17)
[2023-08-27] MEDS: Insulin Regular 300 UNITS/3 ML VIAL SC PRN (06:18)
[2023-08-27 07:00] LABS: #Eosinphils 0.3 thou/uL (0.0-0.7); #Monocytes 0.6 thou/uL (0.11-0.59); #Neutrophils 5.2 thou/uL (1.40-6.50); %Basophils 0.5 % (0.0-1.0); %Lymphocytes 23.1 % (21.0-51.0); %Monocytes 7.5 % (0.0-10.0); %Neutrophils 64.7 % (42.0-75.0); Hematocrit 41.9 % (42.0-52.0); Hemoglobin 14.5 g/dL (14.0-18.0); Mean Corpuscular HGB CONC 34.6 g/dL (32.0-36.0); Mean Corpuscular Hemoglobin 31.8 pg (27.0-31.0); Mean Corpuscular Volume 91.9 fl (78.0-98.0); Mean Platelet Volume 11.5 fL (7.4-10.4); Platelet Count 171 10x3/uL (130-400); RBC Distribution Width 12.3 % (11.5-14.5); Red Blood Cell (RBC) Count 4.56 mill/uL (4.70-6.10); White Blood Cell (WBC) Count 8.1 10x3/uL (4.8-10.8)
[2023-08-27] MEDS ORDERED: PROPOFOL 20 ML ONE (07:51)
[2023-08-27] MEDS ORDERED: Amiodarone 450 MG in Dextrose 5% in Water 250 ML IVPB SCH (08:45)
[2023-08-27] MEDS ORDERED: Aspirin 81 mg Enteric Coated Tablet PO SCH (09:00)
[2023-08-27 09:45] LABS: Calcium 9.6 mg/dL (7.8-10.44); Chloride 104 mmol/L (98-107); Potassium 4.4 mmol/L (3.5-5.1); Sodium 137 mmol/L (136-145)
[2023-08-27] MEDS ORDERED: Ramipril 5 MG CAP PO SCH (09:45)
[2023-08-27 09:46] LABS: Glucose 210 mg/dL (83-110)
[2023-08-27 09:47] LABS: Anion Gap 14 mmol/L (10-20); Carbon Dioxide 23 mmol/L (23-31)
[2023-08-27 09:49] LABS: Calc. Creatinine Clearance 101 mL/min (70-130); Estimated GFR 87
[2023-08-27 09:50] LABS: BUN (Urea Nitrogen) 12 mg/dL (8.4-25.7)
[2023-08-27 09:51] LABS: Magnesium 1.5 mg/dL (1.6-2.6)
[2023-08-27] MEDS: Metoprolol Tartrate 25 MG TAB PO SCH (10:13)
[2023-08-27] MEDS: Magnesium Oxide 400 MG TAB PO SCH (10:14)
[2023-08-27] MEDS: Apixaban 5 MG TAB PO SCH (10:14)
[2023-08-27 11:54] VITALS: BP 114/64
[2023-08-27 12:38] VITALS: TEMP 97.8
[2023-08-27] MEDS ORDERED: Dronedarone HCl 400 MG TAB PO SCH (17:00)
[2023-08-28] MEDS ORDERED: Ramipril 5 MG CAP PO SCH (09:00)
== END 2023-08-27 17:20 | disposition home or self-care (01) | DRG 310 ==
LOC: ERS 06:41 → IMCU/EMU 09:36
PROVIDERS: ADMIT Internal Medicine; ATTEND Family Medicine
PROC: 5A2204Z Restoration of Cardiac Rhythm, Single (ICD-10-PCS; principal; 2023-08-26)
DX: I48.0 Paroxysmal atrial fibrillation (principal); E83.42 Hypomagnesemia; E11.9 Type 2 diabetes mellitus without complications; I10 Essential (primary) hypertension; I25.10 Atherosclerotic heart disease of native coronary artery without angina pectoris; G47.33 Obstructive sleep apnea (adult) (pediatric); K21.9 Gastro-esophageal reflux disease without esophagitis; E78.00 Pure hypercholesterolemia, unspecified; Z79.82 Long term (current) use of aspirin; Z79.899 Other long term (current) drug therapy; Z88.5 Allergy status to narcotic agent; Z88.8 Allergy status to other drugs, medicaments and biological substances; Z79.84 Long term (current) use of oral hypoglycemic drugs; I25.2 Old myocardial infarction; Z95.1 Presence of aortocoronary bypass graft; Z79.01 Long term (current) use of anticoagulants; Z86.16 Personal history of COVID-19; Z90.49 Acquired absence of other specified parts of digestive tract; Z98.890 Other specified postprocedural states; Z87.891 Personal history of nicotine dependence
CPT/HCPCS: 36415; 36416; 71045; 80048; 80053; 80061; 81001; 82043; 83036; 83690; 83735; 83880; 84100; 84443; 84484; 85025; 92960; 93005; 93010; 94760; 96361; 96365; 96366; 96375; 96376; G0103; J0282; J1160; J1815; J2704; J3475; J7070

== ENCOUNTER 2023-10-20 06:40 | Day surgery (SDC) | payer MEDICARE ==
[2023-10-14 11:33] VITALS: BMI 32.7
[2023-10-14 13:05] LABS: Hematocrit 44.5 % (38.8-50.0); Hemoglobin 15.2 g/dL (13.5-17.5); Mean Corpuscular HGB CONC 34.2 g/dL (32.0-36.0); Mean Corpuscular Hemoglobin 31.5 pg (27.0-33.0); Mean Corpuscular Volume 92.3 fl (81.2-95.1); Mean Platelet Volume 11.6 fl (7.4-10.4); Platelet Count 207 10x3/uL (150-450); RBC Distribution Width 12.9 % (11.5-14.5); Red Blood Cell (RBC) Count 4.82 10x6/uL (4.32-5.72); White Blood Cell (WBC) Count 7.1 10x3/uL (3.5-10.5)
[2023-10-14 13:47] LABS: INR-International Normal Ratio 1.1; PTT 29.6 sec (22.0-33.0); Prothrombin Time 11.6 sec (9.5-12.1)
[2023-10-14 14:28] LABS: Anion Gap 16 mmol/L (10-20); BUN (Urea Nitrogen) 14 mg/dL (8.4-25.7); Calc. Creatinine Clearance 93 mL/min (70-130); Calcium 9.8 mg/dL (7.8-10.44); Carbon Dioxide 22 mmol/L (23-31); Chloride 105 mmol/L (98-107); Estimated GFR 79; Glucose 127 mg/dL (83-110); Sodium 138 mmol/L (136-145)
[2023-10-20] MEDS ORDERED: Protamine Sulfate 50 MG/5 ML VIAL ONE ×2 (06:59→12:00)
[2023-10-20] MEDS ORDERED: Heparin 10,000 UNITS/ 10 ML VIAL ONE (06:59)
[2023-10-20] MEDS ORDERED: Heparin 25,000 units/D5W 500 ML ONE (06:59)
[2023-10-20] MEDS ORDERED: Dexamethasone 20 MG/5 ML VIAL ONE (08:59)
[2023-10-20] MEDS ORDERED: Lidocaine 1% PF 5 ML VIAL ONE (08:59)
[2023-10-20] MEDS ORDERED: PROPOFOL 200 MG/20 ML VIAL ONE (08:59)
[2023-10-20] MEDS ORDERED: Rocuronium Bromide 10 MG/ML (10ML VIAL) ONE (08:59)
[2023-10-20] MEDS ORDERED: Ondansetron PF 4 MG/2 ML Vial ONE (08:59)
[2023-10-20] MEDS ORDERED: NEOSTIGMINE 3 MG/3 ML SYR 3 MG/3 ML SYRINGE ONE (08:59)
[2023-10-20] MEDS ORDERED: Glycopyrrolate 0.2 MG/ML 5 ML SYRINGE ONE (08:59)
[2023-10-20] MEDS ORDERED: PHENYLEPHRINE-NS 100 MCG/ML 10 ML SYRINGE ONE (08:59)
[2023-10-20] MEDS ORDERED: fentaNYL 50 mcg/mL 1 mL Vial ONE (09:13)
[2023-10-20] MEDS ORDERED: Isoproterenol 0.2 MG/1 ML AMP ONE (09:54)
[2023-10-20] MEDS ORDERED: Ketorolac Tromethamine 30 MG/ML VIAL ONE (13:03)
== END 2023-10-20 16:40 | disposition home or self-care (01) ==
LOC: SDC 06:40
PROVIDERS: ATTEND Internal Medicine Cardiovascular Disease
DX: I48.0 Paroxysmal atrial fibrillation (principal); E11.9 Type 2 diabetes mellitus without complications; I10 Essential (primary) hypertension; G47.33 Obstructive sleep apnea (adult) (pediatric); E78.5 Hyperlipidemia, unspecified; I25.2 Old myocardial infarction; I25.10 Atherosclerotic heart disease of native coronary artery without angina pectoris; I48.3 Typical atrial flutter; I25.810 Atherosclerosis of coronary artery bypass graft(s) without angina pectoris; I48.92 Unspecified atrial flutter; Z86.19 Personal history of other infectious and parasitic diseases; Z79.01 Long term (current) use of anticoagulants; Z88.5 Allergy status to narcotic agent; Z79.899 Other long term (current) drug therapy; Z86.16 Personal history of COVID-19; Z87.891 Personal history of nicotine dependence; Z79.84 Long term (current) use of oral hypoglycemic drugs; Z92.29 Personal history of other drug therapy; Z86.79 Personal history of other diseases of the circulatory system
CPT/HCPCS: 80048; 85027; 85347; 85610; 85730; 93005; 93622; 93623; 93655; 93656; 93657; C1732 ×3; C1759; C1760; C1894; J3010; J1100; J1644; J1885; J2405; J2704; J2720

== ENCOUNTER 2023-10-27 20:39 | Inpatient (IN) | payer MEDICARE ==
[2023-10-27 21:36] LABS: #Basophils 0.1 thou/uL (0.0-0.2); #Eosinphils 0.5 thou/uL (0.0-0.7); #Monocytes 0.8 thou/uL (0.11-0.59); #Neutrophils 6.2 thou/uL (1.40-6.50); %Basophils 0.5 % (0.0-1.0); %Eosinophils 5.3 % (0.0-10.0); Hematocrit 43.5 % (42.0-52.0); Hemoglobin 15.1 g/dL (14.0-18.0); Mean Corpuscular HGB CONC 34.7 g/dL (32.0-36.0); Mean Corpuscular Hemoglobin 31.6 pg (27.0-31.0); Mean Platelet Volume 11.5 fL (7.4-10.4); Platelet Count 243 10x3/uL (130-400); RBC Distribution Width 12.2 % (11.5-14.5); Red Blood Cell (RBC) Count 4.78 mill/uL (4.70-6.10); White Blood Cell (WBC) Count 10.2 10x3/uL (4.8-10.8)
[2023-10-27 21:58] LABS: ALT (SGPT) 26 U/L (8-55); AST (SGOT) 17 U/L (5-34); Albumin 4.5 g/dL (3.4-4.8); Alkaline Phosphatase 88 U/L (40-110); Anion Gap 18 mmol/L (10-20); BUN (Urea Nitrogen) 20 mg/dL (8.4-25.7); Bilirubin, Total 0.5 mg/dL (0.2-1.2); Calc. Creatinine Clearance 0 mL/min (70-130); Calcium 9.9 mg/dL (7.8-10.44); Carbon Dioxide 21 mmol/L (23-31); Chloride 100 mmol/L (98-107); Estimated GFR 59; Globulin 2.5 g/dL (2.4-3.5); Glucose 242 mg/dL (83-110); Lipase 20 U/L (8-78); Magnesium 1.2 mg/dL (1.6-2.6); Potassium 4.7 mmol/L (3.5-5.1); Sodium 134 mmol/L (136-145)
[2023-10-27 22:01] LABS: Troponin I 0.128 ng/mL (< 0.028)
[2023-10-27] MEDS ORDERED: Magnesium 2 GM/50 ML BAG (IN WATER) ONE (22:44)
[2023-10-27] MEDS ORDERED: Metoprolol Tartrate 5 MG/5 ML VIAL ONE (23:08)
[2023-10-27] MEDS ORDERED: dilTIAZem 25 MG/5 ML VIAL ONE (23:16)
[2023-10-28] MEDS ORDERED: Acetaminophen 500 MG TAB ONE (00:03)
[2023-10-28] MEDS ORDERED: Furosemide 40 MG TAB PO PRN (01:12)
[2023-10-28] MEDS ORDERED: Ondansetron ODT 4 MG TAB PO PRN (01:18)
[2023-10-28] MEDS ORDERED: Acetaminophen 325 MG TAB PO PRN (01:18)
[2023-10-28] MEDS ORDERED: Senokot S 8.6-50 MG TAB PO PRN (01:18)
[2023-10-28] MEDS ORDERED: dilTIAZem 125 MG in Sodium Chloride 0.9% 100 ML IVPB SCH (01:30)
[2023-10-28 02:02] LABS: #Basophils 0.1 thou/uL (0.0-0.2); #Eosinphils 0.6 thou/uL (0.0-0.7); #Monocytes 0.9 thou/uL (0.11-0.59); #Neutrophils 5.6 thou/uL (1.40-6.50); %Basophils 0.7 % (0.0-1.0); %Lymphocytes 26.1 % (21.0-51.0); %Monocytes 9.1 % (0.0-10.0); %Neutrophils 57.9 % (42.0-75.0); Hematocrit 42.7 % (42.0-52.0); Hemoglobin 14.6 g/dL (14.0-18.0); Mean Corpuscular HGB CONC 34.2 g/dL (32.0-36.0); Mean Corpuscular Hemoglobin 31.5 pg (27.0-31.0); Mean Corpuscular Volume 92.2 fl (78.0-98.0); Mean Platelet Volume 10.9 fL (7.4-10.4); Platelet Count 211 10x3/uL (130-400); RBC Distribution Width 12.3 % (11.5-14.5); Red Blood Cell (RBC) Count 4.63 mill/uL (4.70-6.10); White Blood Cell (WBC) Count 9.7 10x3/uL (4.8-10.8)
[2023-10-28 02:28] LABS: Troponin I 0.113 ng/mL (< 0.028)
[2023-10-28 02:37] VITALS: BMI 32.4
[2023-10-28 03:40] LABS: Anion Gap 18 mmol/L (10-20); BUN (Urea Nitrogen) 19 mg/dL (8.4-25.7); Calc. Creatinine Clearance 84 mL/min (70-130); Carbon Dioxide 20 mmol/L (23-31); Chloride 100 mmol/L (98-107); Estimated GFR 71; Glucose 176 mg/dL (83-110); Potassium 4.2 mmol/L (3.5-5.1); Sodium 134 mmol/L (136-145)
[2023-10-28 05:38] LABS: Troponin I 0.111 ng/mL (< 0.028)
[2023-10-28] MEDS ORDERED: glipiZIDE 10 MG TAB PO SCH (08:00)
[2023-10-28] MEDS ORDERED: metFORMIN XR 500 MG ER.TAB PO SCH (08:00)
[2023-10-28] MEDS: Sucralfate 1 GM TAB PO SCH ×2 (08:16→11:18)
[2023-10-28] MEDS ORDERED: FLU VACC QS2023(65UP)/MF59C/PF 60 MCG/0.5 ML SYRINGE IM ONE (09:00)
[2023-10-28] MEDS ORDERED: Famotidine 20 MG TAB PO SCH ×2 (09:00→21:00)
[2023-10-28] MEDS ORDERED: Aspirin 81 mg Enteric Coated Tablet PO SCH (09:00)
[2023-10-28] MEDS ORDERED: Ramipril 5 MG CAP PO SCH (09:00)
[2023-10-28] MEDS ORDERED: Apixaban 5 MG TAB PO SCH (09:00)
[2023-10-28] MEDS ORDERED: Multivitamin w/Zinc Stress 1 TAB PO SCH (09:00)
[2023-10-28] MEDS ORDERED: Dronedarone HCl 400 MG TAB PO SCH ×2 (10:15→17:00)
[2023-10-28 11:20] VITALS: BP 133/84; TEMP 98.8
[2023-10-28] MEDS ORDERED: PROPOFOL 200 MG/20 ML VIAL ONE (14:10)
[2023-10-28] MEDS ORDERED: Lidocaine 1% PF 5 ML VIAL ONE (14:10)
[2023-10-28] MEDS ORDERED: Atorvastatin Calcium 40 MG TAB PO SCH (21:00)
== END 2023-10-28 16:56 | disposition home or self-care (01) | DRG 309 ==
LOC: ERS 20:39 → ERHOLD 23:21 → 2NO 10-28 01:17
PROVIDERS: ADMIT Student in an Organized Health Care Education/Training Program; ATTEND Internal Medicine
PROC: 5A2204Z Restoration of Cardiac Rhythm, Single (ICD-10-PCS; principal; 2023-10-28)
DX: I48.91 Unspecified atrial fibrillation (principal); I25.810 Atherosclerosis of coronary artery bypass graft(s) without angina pectoris; E83.42 Hypomagnesemia; E11.9 Type 2 diabetes mellitus without complications; I10 Essential (primary) hypertension; E66.9 Obesity, unspecified; G47.33 Obstructive sleep apnea (adult) (pediatric); E78.5 Hyperlipidemia, unspecified; Z88.5 Allergy status to narcotic agent; Z79.84 Long term (current) use of oral hypoglycemic drugs; Z79.899 Other long term (current) drug therapy; Z79.82 Long term (current) use of aspirin; Z95.1 Presence of aortocoronary bypass graft; Z90.49 Acquired absence of other specified parts of digestive tract; Z98.890 Other specified postprocedural states; Z68.32 Body mass index [BMI] 32.0-32.9, adult; I48.92 Unspecified atrial flutter
CPT/HCPCS: 36415; 36416; 71045; 80048; 80053; 83690; 83735; 83880; 84484; 85025; 92960; 93005; 93010; 96365; 96366; 96375; J2704; J3475; J3490

== ENCOUNTER 2023-11-06 07:24 | Day surgery (SDC) | payer MEDICARE ==
[2023-11-05 16:42] VITALS: BMI 32.1
[~2023-11-06 07:24] MED LIST: Fluorouracil 100 MG, Enoxaparin 25 MG, EPINEPHrine 0.3 MG in Ophthalmic Irrigation Solu... IRR SCH
[2023-11-06] MEDS ORDERED: Midazolam HCl 2 mg/2 ml Vial ONE (08:17)
[2023-11-06] MEDS ORDERED: fentaNYL 50 mcg/mL 1 mL Vial ONE (08:17)
[2023-11-06] MEDS ORDERED: PHENYLephrine 2.5% Ophth Soln 15 ml Bottle ONE (08:21)
[2023-11-06] MEDS ORDERED: Cyclopentolate 1% Opth Drop 2 ML BOT ONE (08:21)
[2023-11-06] MEDS ORDERED: PROPOFOL 200 MG/20 ML VIAL ONE (09:12)
[2023-11-06] MEDS ORDERED: Bupivacaine 0.75% 10 ML VIAL ONE (09:12)
[2023-11-06] MEDS ORDERED: Lidocaine 4% PF 5 ML AMP ONE (09:12)
[2023-11-06] MEDS ORDERED: CEFAZOLIN 1 GM VIAL ONE (09:12)
[2023-11-06] MEDS ORDERED: Triamcinolone 40 MG/ML VIAL ONE (09:12)
[2023-11-06] MEDS ORDERED: Maxitrol 0.1% Opth Oint 3.5 GM TUBE ONE (09:12)
[2023-11-06] MEDS ORDERED: Lidocaine 1% PF 5 ML VIAL ONE (09:12)
== END 2023-11-06 11:40 | disposition home or self-care (01) ==
LOC: SDC 07:24
PROVIDERS: ATTEND Ophthalmology Retina Specialist
PROC: 08T53ZZ Resection of Left Vitreous, Percutaneous Approach (ICD-10-PCS; principal; 2023-11-06)
DX: H33.022 Retinal detachment with multiple breaks, left eye (principal)
CPT/HCPCS: 67025; 67108; J3010; J0171; J0690; J1650; J2250; J2704; J3301; J3490; J9190

== ENCOUNTER 2024-05-31 08:12 | Outpatient (CLI) | payer MEDICARE | END 2024-05-31 08:13 | disposition home or self-care (01) | LOC: NM 08:12 | PROVIDERS: ATTEND Family Medicine | DX: E83.52 Hypercalcemia (principal); I25.10 Atherosclerotic heart disease of native coronary artery without angina pectoris; I51.7 Cardiomegaly; M19.011 Primary osteoarthritis, right shoulder; M19.012 Primary osteoarthritis, left shoulder | CPT/HCPCS: 78072; A9500 ==

== ENCOUNTER 2025-11-10 13:40 | Outpatient (CLI) | payer MEDICARE | END 2025-11-10 13:41 | disposition home or self-care (01) | LOC: SCSRAD 13:40 | PROVIDERS: ATTEND Family Medicine | DX: L97.519 Non-pressure chronic ulcer of other part of right foot with unspecified severity (principal) ==